=== PATIENT | female | born 1950 | race Caucasian/White ===

== ENCOUNTER 2016-07-14 19:40 | Inpatient (IN) | payer BC ==
--- NOTE | ~2016-07-14 | OP ---
Record Of Operation [facility] [address] [place]. [address] NAME: JANETT LOWE : 54 STATUS : ADM IN [facility]#: [id number] AGE: 66 ADM/REG DATE : 07/14/16 MR#: [id number] REPORT SERV DATE: 07/17/16 DICTATED BY: ANDRÉS LAZARO DATE: 07/17/16 REPORT STATUS : Draft TRANSCRIBED BY: MODL DATE: 07/17/16 DATE OF PROCEDURE: 07/16/2016 ATTENDING SURGEON: Andrés Lazaro MD SOCK IRONER: None. PRE-PROCEDURE DIAGNOSIS: Status post drip catheter for tibial artery thrombosis. 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 PROCEDURE PERFORMED: 1. Cessation of lytic catheter. 2. Right lower extremity arteriogram. 3. Penumbra arterial aspiration of the anterior tibial artery using a CAT5 device. 4. Viabahn stenting of the SFA and popliteal artery using a 5 and 6 mm Viabahn stent. ANESTHESIA: MAC and local. SPECIMENS: None. ESTIMATED BLOOD LOSS: Minimal. COMPLICATIONS: None. INDICATIONS: Janett Lowe is 66 years old. She underwent SFA angioplasty and atherectomy yesterday with tibial artery thrombus burden. She had a drip catheter placed for 9 hours and was brought back to the operating room for further investigation. OPERATIVE COURSE: The patient was brought to the operating room and placed supine position on the operating room table. The patient had MAC anesthetic without complications. Left groin and right leg were prepped and draped in sterile fashion. A time-out was performed. Identified the correct patient, procedure, and site. We began by removing the obturator to the Uni-Fuse catheter. We wired out the Uni-Fuse catheter and brought down a TrailBlazer catheter. We performed angiogram below the knee demonstrating brisk runoff both with the peroneal and posterior tibial artery, which was in line with the foot. The anterior tibial artery was struggling to fill and terminated a couple centimeters into its course. We gave IV heparin and allowed adequate time for circulation. We were able to cannulate the anterior tibial artery and passed a wire and catheter down almost to the ankle. We brought up a CAT5 Penumbra catheter and a separator and performed aspiration thrombectomy for three runs up and down the anterior tibial artery. After this, the anterior tibial artery appeared widely patent without further thrombus burden. We brought the wire and catheter out of the anterior tibial artery and performed angiogram of the SFA. This demonstrated ready looking appearance with possible thrombus formation within the angioplastied surface. We decided to realign this area with a new stent. We began at the distal femoral plateau and started with a 5 x 150 Viabahn stent. We deployed this without problems. We then Record Of [address] [address] NAME: JANETT LOWE : 54 STATUS : ADM IN PAT#: [id number] AGE: 66 ADM/REG DATE : 07/14/16 MR#: [id number] REPORT SERV DATE: 07/17/16 DICTATED BY: ANDRÉS LAZARO DATE: 07/17/16 REPORT STATUS : Draft TRANSCRIBED BY: HOWARD DATE: 07/17/16 overlapped that going cephalad with a 6 x 250 stent, this was all post-angioplastied with a 6 mm balloon. Finish result was rapid flow through the SFA popliteal into the tibial system. No further thrombus burden was detected. The sheath was wired out and brought over to the left side of the patient. Due to the fact that it was a 7-Chilean sheath. We used a ProGlide closure device for closure and got adequate hemostasis. The patient tolerated the procedure well. She was awakened and transferred to recovery in stable condition. TIMBO/HOWARD Andrés Lazaro MD / [id number] CC: MD SIS Gonzalez TERESA J.
--- NOTE | ~2016-07-14 | OP ---
Record Of Operation [facility] [address] [place]. [address] NAME: JANETT LOWE : 54 STATUS : ADM [place] PAT#: [id number] AGE: 66 ADM/REG DATE : 07/14/16 MR#: [id number] REPORT SERV DATE: 07/16/16 DICTATED BY: ANDRÉS LAZARO DATE: 07/16/16 REPORT STATUS : Draft TRANSCRIBED BY: MODL DATE: 07/16/16 DATE OF PROCEDURE: 07/16/2016 SURGEON: Andrés Lazaro MD FELLER MACHINE OPERATOR: None. PREPROCEDURE DIAGNOSIS: Right SFA occlusion. POSTPROCEDURE DIAGNOSIS: Right SFA occlusion. PROCEDURE PERFORMED: 1. Ultrasound access, left common femoral artery. 2. Aortogram. 3. Right lower extremity arteriogram. 4. Atherectomy of the right occluded SFA stent using a Mappyfriends atherectomy device. 5. Angioplasty of the SFA using a 5 mm balloon. 6. Placement of Uni*Fuse infusion catheter. ANESTHESIA: MAC and local. SPECIMENS: None. ESTIMATED BLOOD LOSS: Minimal. COMPLICATIONS: Tibial artery thromboses. INDICATIONS: Janett Lowe is 66 years old. She presented to the hospital with one weeks' worth of foot pain. She had monophasic signals on an ultrasound. She had demonstration of stent occlusion. She was offered arteriogram. Risks, benefits, and alternatives were discussed. She understood and wished to proceed. OPERATIVE COURSE: The patient was brought to the operating room and placed in supine position on the operating room table. The patient had MAC anesthetic without complications. Bilateral groins were prepped and draped in sterile fashion. A time-out was performed and identified correct patient, procedure, and site. We began by using the ultrasound to identify the left common femoral artery, it was patent with qvld-ce-vniyscnn disease. We anesthetized the skin and accessed the artery under ultrasound guidance. A wire was passed into the abdominal aorta, the needle was removed, we placed a 5-Solomon Islander sheath. Over the wire, we passed the UF catheter and performed aortography demonstrating patency of the aortoiliac segment with moderate disease in the iliac arteries bilaterally. No flow- limiting stenosis was identified. We then were able to catheterize the contralateral common iliac artery and passed a wire and catheter down to the right common femoral level. We performed arteriogram, demonstrating patent common femoral and profunda femoris arteries. The profunda femoris beat the SFA, which was occluded. The popliteal artery reconstituted at the knee into what appeared to be three-vessel runoff through anterior and posterior Record Of Operation [facility] [id number] [place]. [address] NAME: JANETT LOWE : 54 STATUS : ADM [place] PAT#: [id number] AGE: 66 ADM/REG DATE : 07/14/16 MR#: [id number] REPORT SERV DATE: 07/16/16 DICTATED BY: ANDRÉS LAZARO DATE: 07/16/16 REPORT STATUS : Draft TRANSCRIBED BY: MODKinjal DATE: 07/16/16 tibial and peroneal arteries. IV heparin was running throughout the case. We sized up to a 6-Solomon Islander sheath. We then brought a wire and catheter and were able to gain access into the occluded SFA. We traversed the SFA occlusion and emerged at the popliteal artery, where we performed the runoff picture as documented above. We then changed out to a #5 Spider filter to prevent embolization. We then brought up a Jetstream device and performed atherectomy with both wings down and wings up of the entire occluded SFA stent. We then angioplastied the SFA stent using a 5 mm balloon. Repeat angiogram demonstrated improvement proximally, but no improvement distally. We re-angioplastied the distal portion for 3 minutes at 12 atmospheres. This gave a much improved result with widely patent stent all the way down to the popliteal artery. The flow was sluggish and looked to be hanging up at the popliteal artery. We replaced the Trailblazer catheter distally and performed distal runoff view, which showed no flow in all tibial arteries. We gave tPA through the catheter as well as nitroglycerin, thinking we had spasm. This improved the proximal portion of the tibials, but the distals still appeared occluded. We felt that it was prudent to try and drip this for several hours to try and resolve the problem in the tibial arteries. We placed a Uni*Fuse catheter down into the anterior tibial artery, and the treatment portion draped over the tibioperoneal trunk and back up into the popliteal artery. We placed the obturator, connected the 7-Solomon Islander sheath to heparin drip, and connected the Uni*Fuse catheter to a tPA drip. The system was secured to the skin, and then she was transferred to the ICU in stable condition. JSH/ÁLVAROL Andrés Lazaro MD / [id number] CC: MD Gilbert Gonzalez Teresa J
--- NOTE | ~2016-07-14 | HP ---
History And Physical [facility] [address] [place]. [address] NAME: JANETT TRIVEDI : 54 STATUS : DIS IN PAT#: [id number] AGE: 66 ADM/REG DATE : 07/14/16 MR#: [id number] REPORT SERV DATE: 08/12/16 DICTATED BY: ANDRÉS LAZARO DATE: 08/11/16 REPORT STATUS : Draft TRANSCRIBED BY: HOWARD DATE: 08/11/16 DATE OF ADMISSION: 07/14/2016 REASON FOR ADMISSION: Leg pain. HISTORY: Janett Trivedi is a 66-year-old white female, seen in the emergency department for a red painful right foot. This has been going on for several days. She does not have any thigh or calf pain, but the foot is hot and warm and she came to the ER for further evaluation. They performed investigation and found occluded, what they said was, fem-pop bypass graft, but I do not believe she has that. She had monophasic flow distally in her foot, but due to the acute change in her vascular condition, was offered admission and intervention. PAST MEDICAL HISTORY: Includes hypertension, carotid artery disease, peripheral vascular disease, history of stroke in 2013, history of AAA, chronic kidney disease, peripheral neuropathy, and anemia. PAST SURGICAL HISTORY: Includes arteriogram of the left leg with SFA and popliteal intervention on October of 2013, tubal ligation, history of breast surgery, left carotid endarterectomy in October of 2013, history of stent placement in the right leg. SOCIAL HISTORY: History of tobacco abuse, used to be one pack per day. She quit back in April. She is a moderate drinker, consumes three glasses of wine per day. FAMILY HISTORY: Colon cancer in her father and lung cancer in her father. ALLERGIES: NO KNOWN ALLERGIES. MEDICATIONS: Include chlorthalidone, metoprolol, losartan, Plavix, aspirin, amlodipine, Neurontin, clonidine, carvedilol. PHYSICAL EXAMINATION: VITAL SIGNS: The patient is 123 pounds. She is 5 feet tall. Pulse is 78, blood pressure was 158/96, pulse is 78, respirations are 12 with 98% on room air. GENERAL: She is pleasant without distress. HEENT: She wears glasses. Her mucous membranes are moist. Her head is normocephalic and atraumatic. Her pupils are equal, round, and reactive to light. Her extraocular muscles are intact. NECK: Supple without JVD or lymphadenopathy. She has no carotid bruit. CHEST: Clear to auscultation bilaterally with good respiratory effort. CARDIOVASCULAR: Regular rate and rhythm without murmur, rub, or gallop. ABDOMEN: Soft, nontender, and nondistended without any masses. VASCULAR: She has palpable radial pulses bilaterally. Her femoral pulses are palpable bilaterally. The right foot is red and has some swelling. The capillary refill is delayed. There was monophasic signal distally in the right foot. History And Physical [address] [address] NAME: JANETT TRIVEDI : 54 STATUS : DIS IN [facility]#: [id number] AGE: 66 ADM/REG DATE : 07/14/16 MR#: [id number] REPORT SERV DATE: 08/12/16 DICTATED BY: ANDRÉS LAZARO DATE: 08/11/16 REPORT STATUS : Draft TRANSCRIBED BY: HOWARD DATE: 08/11/16 IMPRESSION AND PLAN: Janett Trivedi is a 66-year-old with an acute change in her vascular condition. She is offered urgent arteriogram to rectify the problem. Risks, benefits, and alternatives of the bleeding, limb loss, and were discussed. She will be admitted to the hospital afterwards for monitoring of her acute situation. LYNSEY/HOWARD Andrés Lazaro MD / [id number] CC: MD SIS Gonzalez TERESA J
--- NOTE | ~2016-07-14 | DS ---
Discharge Summary [facility] [address] [place]. [address] NAME: SARA LOWE : 54 STATUS : DIS IN PAT#: [id number] AGE: 66 ADM/REG DATE : 07/14/16 MR#: [id number] REPORT SERV DATE: 08/11/16 DICTATED BY: ANDRÉS LAZARO DATE: 08/11/16 REPORT STATUS : Draft TRANSCRIBED BY: HOWARD DATE: 08/11/16 ADMISSION DATE: 07/14/2016 DISCHARGE DATE: 07/19/2016 DISCHARGE CONDITION: Stable. DISCHARGE DISPOSITION: To home. PROCEDURES PERFORMED: On 07/16/2016, she had intervention of the right leg with an arteriogram and atherectomy of her occluded SFA stents. She also had distal embolization, requiring placement of a UniFuse catheter. She had a return visit to the operating room later in the day on 07/16 with cessation of the lytic catheter and percutaneous thrombectomy using a Penumbra device. At that time, she also had re-stenting of her SFA stents. She did well after that procedure and was maintained on aspirin and Plavix. Her lower extremity improved to the point where she could walk on it. She had physical therapy while she was here and was discharged over the weekend on 07/19/2016 in stable condition to home. She will follow up with Dr. Lazaro in two weeks. TIMBO/HOWARD Andrés Lazaro MD / [id number] CC: MD Gilbert Gonzalez Teresa J
[~2016-07-14 19:40] MED LIST: ACET500CAP PO; ADVIL PO; ASA5GR PO; ASABAYER PO; BYSTOLIC10 MG PO; CAT2; CENTRUM PO; COREG12 PO; COZ50 PO; DENIES HOME MEDS; HYGROTON 25 MG25 MG PO; LIPITOR40; LISINOPRIL40 MG PO; LOP50 PO; MAGOX4 PO; MULTIPLE VIT; NEUR300; NEUR300 PO; NORV10 PO; NORV5 PO; P10; PLAVIX PO; PROTONIX; SPIRO25 PO; VITAMIN E OTC PO
[2016-07-16 06:56] LABS: HEMATOCRIT 33.7 % (36.0-48.0); HEMOGLOBIN 11.1 g/dL (12.0-16.0)
[2016-07-16 07:11] LABS: BUN (BLOOD UREA NITROGEN) 22 MG/DL (6-23); CALCIUM, SERUM 8.5 MG/DL (8.5-10.4); CHLORIDE, SERUM 109 MMOL/L (96-112); CO2 (CARBON DIOXIDE) 22 MMOL/L (24-34); CREATININE 1.33 MG/DL (0.55-1.02); GFR AFRICAN AMERICAN 49 ML/MIN (>=60); GFR NON AFRICAN AMERICAN 42 ML/MIN (>=60); GLUCOSE, SERUM 143 MG/DL (60-99); POTASSIUM, SERUM 4.4 MMOL/L (3.5-5.3); SODIUM, SERUM 140 MMOL/L (135-148)
[2016-07-17 06:57] LABS: BASOPHILS 0.5 %; BASOPHILS ABSOLUTE 0.07 10/3/uL (0.0-0.16); EOSINOPHILS 3.5 %; EOSINOPHILS ABSOLUTE 0.47 10/3/uL (0.0-0.53); IMMATURE GRANULOCYTES 0.7 %; IMMATURE GRANULOCYTES ABSOLUTE 0.09 10/3/uL (0.0-0.11); LYMPHOCYTES 14.9 %; LYMPHOCYTES ABSOLUTE 2.02 10/3/uL (0.67-4.30); MEAN CORPUS HGB CONC 33.3 g/dL (32.0-36.0); MEAN CORPUSCULAR HEMOGLOB 27.2 pg (26.0-34.0); MEAN CORPUSCULAR VOLUME 81.7 fL (80-100); MEAN PLATELET VOLUME 9.1 fL (9.2-13.0); MONOCYTES 10.5 %; MONOCYTES ABSOLUTE 1.43 10/3/uL (0.21-1.20); NEUTROPHILS 69.9 %; RBC DISTRIBUTION WIDTH 15.9 % (12.0-16.0); WHITE BLOOD CELLS 13.6 10/3/uL (4.5-10.5)
[2016-07-17 07:01] LABS: MANUAL DIFF NO %; PLATELET COUNT 320 10/3/uL (150-400); RED CELL COUNT 3.67 10/6/uL (4.0-5.6)
[2016-07-17 07:04] LABS: CALCIUM, SERUM 8.1 MG/DL (8.5-10.4); CHLORIDE, SERUM 110 MMOL/L (96-112); CO2 (CARBON DIOXIDE) 21 MMOL/L (24-34); CREATININE 1.28 MG/DL (0.55-1.02); GFR AFRICAN AMERICAN 51 ML/MIN (>=60); GFR NON AFRICAN AMERICAN 44 ML/MIN (>=60); SODIUM, SERUM 142 MMOL/L (135-148)
[2016-07-17 07:05] LABS: BUN (BLOOD UREA NITROGEN) 14 MG/DL (6-23); GLUCOSE, SERUM 96 MG/DL (60-99)
[2016-07-19] MEDS ORDERED: PLAVIX PO (15:58)
[2016-08-14] MEDS ORDERED: PROMEGA PO (23:31)
[2016-08-18] MEDS ORDERED: COREG6 PO (11:18)
[2016-08-18] MEDS ORDERED: NORV5 (11:20)
[2016-08-18] MEDS ORDERED: KLOR-CON M2020 MEQ PO (11:23)
== END 2016-07-19 16:26 | disposition home or self-care (01) | DRG 271 ==
LOC: 2SO 19:40 → CCU 07-16 10:13 → 2SO 07-16 22:39
PROVIDERS: Anesthesiology; Student in an Organized Health Care Education/Training Program
PROC: 3E053PZ Introduction of Platelet Inhibitor into Peripheral Artery, Percutaneous Approach (ICD-10-PCS; 2016-07-16)
PROC: 04HQ33Z Insertion of Infusion Device into Left Anterior Tibial Artery, Percutaneous Approach (ICD-10-PCS; 2016-07-16)
PROC: B41D1ZZ Fluoroscopy of Aorta and Bilateral Lower Extremity Arteries using Low Osmolar Contrast (ICD-10-PCS; principal; 2016-07-16 07:45)
PROC: 04CL3ZZ Extirpation of Matter from Left Femoral Artery, Percutaneous Approach (ICD-10-PCS; 2016-07-16 07:45)
PROC: 047L3ZZ Dilation of Left Femoral Artery, Percutaneous Approach (ICD-10-PCS; 2016-07-16 07:45)
PROC: B44GZZ3 Ultrasonography of Left Lower Extremity Arteries, Intravascular (ICD-10-PCS; 2016-07-16 18:45)
PROC: B41G1ZZ Fluoroscopy of Left Lower Extremity Arteries using Low Osmolar Contrast (ICD-10-PCS; 2016-07-16 18:45)
PROC: 047K3ZZ Dilation of Right Femoral Artery, Percutaneous Approach (ICD-10-PCS; 2016-07-17)
PROC: B41F1ZZ Fluoroscopy of Right Lower Extremity Arteries using Low Osmolar Contrast (ICD-10-PCS; 2016-07-17)
DX: T82.856A Stenosis of peripheral vascular stent, initial encounter (principal); L03.115 Cellulitis of right lower limb; I12.9 Hypertensive chronic kidney disease with stage 1 through stage 4 chronic kidney disease, or unspecified chronic kidney disease; I77.1 Stricture of artery; F17.210 Nicotine dependence, cigarettes, uncomplicated; I71.4 Abdominal aortic aneurysm, without rupture; Y82.9 Unspecified medical devices associated with adverse incidents; N18.9 Chronic kidney disease, unspecified; G62.9 Polyneuropathy, unspecified; Z86.73 Personal history of transient ischemic attack (TIA), and cerebral infarction without residual deficits
CPT/HCPCS: 37186; 37211; 37214; 37225; 37226; 75625; 75710; 80048; 85014; 85018; 85025; 85730; 87641; 93005; A9270-GY; C1714; C1725; C1750; C1757; C1760; C1769; C1874; C1884; C1887; C1894; J0690; J2250; J2405; J2997; J3010; Q9966

== ENCOUNTER 2016-09-17 06:50 | Inpatient (IN) | payer BC ==
[2016-09-16 14:46] LABS: BASOPHILS 1.4 %; BASOPHILS ABSOLUTE 0.16 10/3/uL (0.0-0.16); EOSINOPHILS 12.4 %; HEMATOCRIT 26.9 % (36.0-48.0); HEMOGLOBIN 8.9 g/dL (12.0-16.0); IMMATURE GRANULOCYTES 0.2 %; IMMATURE GRANULOCYTES ABSOLUTE 0.02 10/3/uL (0.0-0.11); LYMPHOCYTES 19.4 %; LYMPHOCYTES ABSOLUTE 2.19 10/3/uL (0.67-4.30); MEAN CORPUS HGB CONC 33.1 g/dL (32.0-36.0); MEAN CORPUSCULAR HEMOGLOB 26.6 pg (26.0-34.0); MEAN CORPUSCULAR VOLUME 80.5 fL (80-100); MEAN PLATELET VOLUME 9.6 fL (9.2-13.0); MONOCYTES 7.5 %; MONOCYTES ABSOLUTE 0.85 10/3/uL (0.21-1.20); NEUTROPHILS 59.1 %; NEUTROPHILS ABSOLUTE 6.64 10/3/uL (2.02-8.40); RBC DISTRIBUTION WIDTH 17.4 % (12.0-16.0); RED CELL COUNT 3.34 10/6/uL (4.0-5.6); WHITE BLOOD CELLS 11.3 10/3/uL (4.5-10.5)
[2016-09-16 14:49] LABS: MANUAL DIFF NO %; PLATELET COUNT 406 10/3/uL (150-400)
[2016-09-16 15:04] LABS: BUN (BLOOD UREA NITROGEN) 44 MG/DL (6-23); CHLORIDE, SERUM 111 MMOL/L (96-112); GLUCOSE, SERUM 97 MG/DL (60-99); SODIUM, SERUM 142 MMOL/L (135-148)
[2016-09-16 15:06] LABS: CALCIUM, SERUM 8.9 MG/DL (8.5-10.4); CO2 (CARBON DIOXIDE) 18 MMOL/L (24-34); CREATININE 3.36 MG/DL (0.55-1.02); GFR AFRICAN AMERICAN 16 ML/MIN (>=60); GFR NON AFRICAN AMERICAN 14 ML/MIN (>=60); POTASSIUM, SERUM 5.8 MMOL/L (3.5-5.3)
--- NOTE | ~2016-09-17 | OP ---
Record Of Operation [facility] [address] [place]. [address] NAME: JANETT TRIVEDI : 54 STATUS : ADM IN [facility]#: [id number] AGE: 66 ADM/REG DATE : 09/17/16 MR#: [id number] REPORT SERV DATE: 09/17/16 DICTATED BY: ANDRÉS LAZARO DATE: 09/17/16 REPORT STATUS : Draft TRANSCRIBED BY: HOWADR DATE: 09/17/16 DATE OF PROCEDURE: 09/17/2016 PREPROCEDURE DIAGNOSIS: Left lower extremity PAD, severe. POSTPROCEDURE DIAGNOSIS: Distal SFA and popliteal occlusion. PROCEDURE PERFORMED: 1. Ultrasound access, right common femoral artery. 2. Aortogram. 3. Left lower extremity arteriogram. 4. Second order catheterization of the left popliteal artery. ANESTHESIA: MAC and local. SPECIMENS: None. ESTIMATED BLOOD LOSS: Minimal. COMPLICATIONS: None. CONTRAST LOAD: 0, CO2 was used for the entire procedure. INDICATIONS: Janett rTivedi is a 66-year-old, has severe PAD, she has had previous stenting in the left leg. Her last ultrasound demonstrated severely reduced ABIs and 0 toe pressures with flat waveforms. She was offered arteriogram. Risks, benefits, and alternatives were discussed. She understood and wished to proceed. OPERATIVE COURSE: The patient was brought to the operating room and placed in the supine position on the operating room table. The patient had MAC anesthetic without complications. Left leg and groins were prepped and draped in sterile fashion. A time-out was performed. Identified the correct patient, procedure, and site. We began by using ultrasound to identify the right common femoral artery, it was patent with moderate disease. We anesthetized the skin and accessed the artery under ultrasound guidance. A copy of this picture was placed in the chart for review. Once we had access, wire was passed into the abdominal aorta. The needle was removed, we placed a 5-Kyrgyz sheath over the wire. We passed the UF catheter placed at the L1 vertebral level and we performed aortography with CO2 injection. This demonstrated patency of the aortoiliac segment with moderate calcific vascular disease, but no obvious flow-limiting stenosis. We used a wire and catheter, accessed the contralateral common iliac artery. We then performed left lower extremity arteriogram with CO2 injection as well. The proximal stent in the SFA was open, the common femoral, and profunda femoris were patent. Distally the SFA appeared to be occluded through the knee and appeared to have runoff through the peroneal and posterior tibial artery only. The posterior tibial was the dominant runoff. The peroneal was sluggish and ended at its usual course at the ankle in its terminal branches. We gave IV heparin, we sized up to a 6- Kyrgyz sheath. We brought a wire and catheter down to the level of the occluded stent. We Record Of [address] [address] NAME: JANETT TRIVEDI : 54 STATUS : ADM IN PAT#: [id number] AGE: 66 ADM/REG DATE : 09/17/16 MR#: [id number] REPORT SERV DATE: 09/17/16 DICTATED BY: ANDRÉS LAZARO DATE: 09/17/16 REPORT STATUS : Draft TRANSCRIBED BY: HOWARD DATE: 09/17/16 were able to make progress through the occlusion with wire and catheter advancement. We made it to the distal popliteal artery and then we were not able to enter the true lumen distally. We had evidence of extravasation of CO2 on one of our final injections. At that point, we elected to terminate before we had any complications. Wires and catheters were removed. We wired out the sheath and brought over to the right side of the patient. We performed contrast arteriogram with CO2 at the common femoral level. This demonstrated a smallish appearing common femoral artery that was better suited to manual pressure then a closure device. Sheath, catheters, and wires were removed. Pressure was held on the artery for 15 minutes. A pressure dressing was applied. The patient tolerated the procedure well. She was awakened and transferred to recovery in stable condition. TIMBO/HOWARD Andrés Lazaro MD / [id number] CC: MD SIS Gonzalez TERESA J
--- NOTE | ~2016-09-17 | CN ---
Consultation Report [facility] [address] [place]. [address] NAME: SARA LOWE : 54 STATUS : ADM IN [facility]#: [id number] AGE: 66 ADM/REG DATE : 09/17/16 MR#: [id number] REPORT SERV DATE: 09/30/16 DICTATED BY: LAURA ALARCON DATE: 09/29/16 REPORT STATUS : Draft TRANSCRIBED BY: MODL DATE: 09/29/16 INFECTIOUS DISEASE CONSULTATION DATE OF CONSULTATION: 09/29/2016 REASON FOR CONSULTATION: C. diff colitis. HISTORY OF PRESENT ILLNESS: This is a 66-year-old female with a past medical history notable for severe vascular disease with known abdominal aortic aneurysm and previous lower extremity stenting, along with coronary artery disease, hypertension, and chronic kidney disease. She was admitted to the hospital on 09/17/2016 with acute kidney injury and need for left lower extremity arteriogram. She has progressed to what appears to be end-stage renal disease in need of dialysis and had a PermCath placed on 09/24/2016. The patient had pyuria on admission, but repeat urinalysis the next day was unimpressive and the initial urine culture was negative. She did receive doses of Ancef on 09/17/2016 and 09/24/2016 for procedures. She had a fever to 100.6 on 09/23/2016, 100 on 09/25/2016, and 100.7 on 09/28/2016. She also developed diarrhea and worsening leukocytosis yesterday prompting testing for C. diff, which returned positive. Her white count is up to 18.6 today, but she says she really has not had too many episodes of loose stools today and she denies any significant abdominal pain. She was started on Flagyl yesterday. She denies recent antibiotics otherwise. PAST MEDICAL HISTORY: In addition, notable for previous CVAs. ALLERGIES: NONE. PRESENT MEDICATIONS: In addition to Flagyl include Norvasc, Coreg, Catapres, Plavix, Neurontin, subcutaneous heparin, and multivitamins. SOCIAL HISTORY: Long-term tobacco user, although quit apparently a few months ago. Lives alone. Nondrinker. FAMILY HISTORY: Notable for CVA. REVIEW OF SYSTEMS: No chest pain, shortness of breath, nausea, or vomiting. PHYSICAL EXAMINATION: VITAL SIGNS: The patient weighs 58 kg. She is afebrile. Blood pressure 149/68, pulse 64, respiratory rate 14. GENERAL: She is in no acute distress. HEAD AND NECK: Shows a clear oral cavity without thrush. LUNGS: Clear to auscultation anteriorly. CARDIAC: Regular rate and rhythm without murmur, gallop, or rub. Consultation Report [facility] [address] [place]. [address] NAME: SARA LOWE : 54 STATUS : ADM IN [facility]#: [id number] AGE: 66 ADM/REG DATE : 09/17/16 MR#: [id number] REPORT SERV DATE: 09/30/16 DICTATED BY: LAURA ALARCON DATE: 09/29/16 REPORT STATUS : Draft TRANSCRIBED BY: HOWARD DATE: 09/29/16 ABDOMEN: Bowel sounds are normal. The abdomen is nondistended, soft, mild discomfort to palpation. EXTREMITIES: Without rash or edema. She has a peripheral IV without phlebitis. LABORATORY STUDIES: White blood cell count 18.6, hemoglobin 7.3, platelets 386. Creatinine 4.58, albumin 2.3. Blood cultures from 09/23/2016 are negative. IMPRESSION: Clostridium difficile colitis. On the one hand, this does not seem like a very severe case with regard to the frequency of stools. However, with her fever yesterday, her rising leukocytosis, and her age and comorbidities, I would favor vancomycin over Flagyl, and I would favor a tapering course of therapy to decrease the risk of a relapse in this patient. PLAN: We will change the vancomycin and give 125 mg q.i.d. x10 days, then t.i.d. for a week, b.i.d. for a week, and daily for one week. DENIZ/HOWARD Laura Alarcon M.D. / [id number] CC: MD Jojo Gonzalez
--- NOTE | ~2016-09-17 | DS ---
Discharge Summary [facility] [address] [place]. [address] NAME: SARA LOWE : 54 STATUS : DIS IN PAT#: [id number] AGE: 66 ADM/REG DATE : 09/17/16 MR#: [id number] REPORT SERV DATE: 10/15/16 DICTATED BY: ANDRÉS LAZARO DATE: 10/15/16 REPORT STATUS : Draft TRANSCRIBED BY: MODKinjal DATE: 10/15/16 Data Collection from hospitalization DISCHARGE DIAGNOSES: 1. Left lower extremity peripheral arterial disease, severe. 2. Acute kidney injury. 3. Late stage chronic kidney disease. 4. Clostridium difficile colitis. 5. Hypertension. 6. Coronary artery disease. 7. History of abdominal aortic aneurysm. CONSULTATIONS: 1. Juan Alarcon M.D. 2. Jamar Negrete M.D. PROCEDURES PERFORMED: 1. Ultrasound access, right common femoral artery; aortogram; left lower extremity arteriogram; second order catheterization of the left popliteal artery on 09/17/2016. 2. Lower extremity vein mapping on 09/17/2016. 3. Duplex Doppler imaging with color flow imaging, waveform analysis and spectral analysis of the renal arteries on 09/18/2016. 4. Placement of right IJ PermCath with fluoroscopic and ultrasound guidance on 09/24/2016. MEDICATIONS: Norvasc 5 mg twice daily, Coreg 6.25 mg twice daily, Plavix 75 mg daily, Neurontin 300 mg daily, Prinivil 10 mg daily, Theragran tablet without minerals one daily, Catapres 0.2 mg twice daily, Omegared as directed, and vancomycin 125 mg every six hours. CONDITION AT DISCHARGE: Upon discharge, she did appear to be doing well and had no complaints. DISPOSITION: She was discharged home to continue a regular diet with activity as tolerated. She was to follow up with me in the office on 10/21/2016. She was also to continue with outpatient hemodialysis at [place] [address] on Wednesday, Wednesday, Wednesday schedule. Home health care was in place upon discharge. HOSPITAL COURSE: This 66-year-old female had severe peripheral arterial disease. She has had previous stenting in the left leg. Her last ultrasound demonstrated severely reduced ABIs and 0 toe pressures with flat waveforms. She was offered arteriogram. The risks, benefits, and alternatives were discussed and she understood and wished to proceed. She was admitted for this and further treatment. Upon admission to the hospital, she had been taken to the operating room where she did undergo the above procedure. She had tolerated this well and was transferred to the recovery room. She had undergone the above lower extremity vein mapping on the day of admission. Following the day of admission, which was postop day #1, she had no complaints of pain. She was afebrile, however, blood pressure was noted to be elevated. Her creatinine was at 4.03. Both feet were warm and dry, and she had good capillary refill. She had also been seen by Ghislaine Parmar and Dr. Jamar Negrete as she had been found to have acute kidney injury as well as chronic kidney disease with question Discharge Summary [address] [address] NAME: SARA LOWE : 54 STATUS : DIS IN PAT#: [id number] AGE: 66 ADM/REG DATE : 09/17/16 MR#: [id number] REPORT SERV DATE: 10/15/16 DICTATED BY: ANDRÉS LAZARO DATE: 10/15/16 REPORT STATUS : Draft TRANSCRIBED BY: HOWARD DATE: 10/15/16 of progression, and there was question of she had contrast-induced nephropathy plus or minus some cholesterol emboli from her procedure or from the floor. Adjustments were made in her IV fluids and some bicarb was added. Her home potassium was stopped. She did undergo the above duplex Doppler imaging of the renal arteries. She was continued on hemodialysis during hospitalization. On 09/19/2016, she had no complaints of shortness of breath or nausea or vomiting, and did appear to be doing well. She was continued on supportive care. On 09/20/2016, she did remain in stable condition and was continued on her current medications. She did state that she was feeling much better. Her creatinine was at 4.69 and BUN 53. On 09/21/2016, she had tolerated her diet. She was afebrile and her vital signs were stable. She had no complaints of groin pain. She was continued on her current medications. On 09/22/2016, she was felt to have been stable overnight and had no acute events noted. Her hematocrit, however, was noted to be at 19. She did undergo transfusion with 1 unit of packed red blood cells. Her creatinine was at 4.97. She had remained in stable condition, and on 09/24/2016, she did undergo placement of a right IJ PermCath with fluoroscopic and ultrasound guidance. She had tolerated this well and was transferred to the recovery room. On 09/26/2016, she did appear to be doing well and was felt to be okay from a vascular standpoint. Discharge planning was begun for outpatient hemodialysis. She had no complaints of rest pain and was continued on supportive care. On 09/27/2016, her hemoglobin was at 7.7, and she had no complaints. She did remain in stable condition. However, on 09/29/2016, she was noted to have a temperature up to 100.7. Her vital signs were, otherwise, stable. She had been checked for Clostridium difficile and this was found to be positive. She was then seen by Dr. Juan Alarcon and he stated that he favored vancomycin over Flagyl and did favor a tapering course of therapy to decrease the risk of relapse in this patient. He changed her vancomycin to a 125 mg four times daily dose x10 days, then three times daily x1 week and twice daily for one week, and then daily for one week thereafter. She had also been evaluated by Physical Therapy. After the addition of vancomycin, her diarrhea was noted to have improved. On 10/01/2016, she was afebrile and her vital signs were stable. She did appear to be doing well. She had remained in stable condition throughout the next few days and was then discharged on 10/02/2016 with the above instructions. Information collected by: Dejuan LyonsI.T. I submit the above information as my discharge summary. RW/MODL Andrés Lazaro MD / [id number] CC: MD SIS Gonzalez TERESA J Hal Hill, M.D. Joseph Watlington, M.D.
--- NOTE | ~2016-09-17 | OP ---
Record Of Operation [facility] [address] [place]. [address] NAME: JANETT TRIVEDI : 54 STATUS : ADM IN [facility]#: [id number] AGE: 66 ADM/REG DATE : 09/17/16 MR#: [id number] REPORT SERV DATE: 09/24/16 DICTATED BY: ANDRÉS LAZARO DATE: 09/24/16 REPORT STATUS : Draft TRANSCRIBED BY: MODKinjal DATE: 09/24/16 DATE OF PROCEDURE: 09/24/2016 FILLER ROOM ATTENDANT: None. PREPROCEDURE DIAGNOSIS: Acute kidney injury and late stage chronic kidney disease. POSTPROCEDURE DIAGNOSIS: Acute kidney injury and late stage chronic kidney disease. PROCEDURE PERFORMED: Placement of right IJ PermCath with fluoroscopic and ultrasound guidance. ANESTHESIA: MAC and local. SPECIMENS: None. ESTIMATED BLOOD LOSS: Minimal. COMPLICATIONS: None. INDICATIONS: Janett Trivedi is 66 years old and has had progressive renal decline while in the hospital despite all measures to assist her kidneys. She now requires dialysis. She was offered PermCath placement. Risks, benefits, and alternatives were discussed. She understood and wished to proceed. OPERATIVE COURSE: The patient was brought to the operating room and placed in a supine position on the operating room table. The patient had MAC anesthetic without complications. The right neck and chest were prepped and draped in a sterile fashion. A time-out was performed. Identified the correct patient, procedure, and site. We began by using ultrasound to identify the right IJ vein. It was patent, compressible, and free of thrombus. We anesthetized the skin and accessed the vein under ultrasound guidance. Once we had access to the wire, it was passed down through the cardiac chambers into the IVC. The needle was then removed. We then anesthetized the skin from the neck site all the way down to the chest site where an 11 blade scalpel was used to make an incision there. We then tunneled a 19 cm curved catheter from the chest site to the neck site and the tunneler was removed. We then used a series of dilators to dilate up the skin and vein tract at the neck site. We then inserted the great breakaway sheath over the wire into position under fluoroscopy. The wire and dilator were then removed. We then inserted the catheter into the sheath and placed into position. The sheath was split and removed while keeping the catheter in place. The catheter was in good position with no neck kink or tortuosity. The catheter flushed and aspirated with ease. It was loaded with heparin and end caps were placed on the catheter. We affixed the catheter to the chest wall using interrupted nylon. The skin at the neck and chest site were closed with interrupted Monocryl suture. Sterile dressing was applied. The patient tolerated the procedure well. She was awakened and transferred to recovery in stable condition. Record Of Operation [address] [address] NAME: JANETT TRIVEDI : 54 STATUS : ADM IN [facility]#: [id number] AGE: 66 ADM/REG DATE : 09/17/16 MR#: [id number] REPORT SERV DATE: 09/24/16 DICTATED BY: ANDRÉS LAZARO DATE: 09/24/16 REPORT STATUS : Draft TRANSCRIBED BY: HOWARD DATE: 09/24/16 [facility]/HOWADR Andrés Lazaro MD / [id number] CC: MD ADIN Gonzalez
--- NOTE | ~2016-09-17 | CN ---
Consultation Report [facility] [address] [place]. [address] NAME: SARA LOWE : 54 STATUS : ADM IN [facility]#: [id number] AGE: 66 ADM/REG DATE : 09/17/16 MR#: [id number] REPORT SERV DATE: 09/17/16 DICTATED BY: DATE: REPORT STATUS : Draft TRANSCRIBED BY: MODL DATE: 09/17/16 CONSULTATION DATE OF CONSULTATION: REASON FOR CONSULTATION: Acute kidney injury and CKD. HISTORY OF PRESENT ILLNESS: Ms. Lowe is a 66-year-old, white female with significant vascular disease, abdominal aortic aneurysm, and infrarenal aneurysm, who we just saw in August for acute renal failure at that time, and she had what was felt to be acute renal failure, secondary to contrast induced nephropathy after being revascularized with a right lower extremity stent. She never did drop her creatinine below 2.75, and then she is back in the hospital today for a left lower extremity arteriogram, and creatinine is 3.36. She denies any shortness of breath chest pain, tightness, or pressure. No nausea, vomiting, diarrhea. Blood pressures are elevated in the 180s. Her potassium was slightly high at 5.8. She has a little bit acidotic with a bicarb of 18. She denies any dysuria or hematuria. PAST MEDICAL HISTORY: CKD stage 3, hypertension, coronary artery disease, peripheral vascular disease, CVA x2, abdominal aortic aneurysm, left carotid endarterectomy, bilateral lower extremity stenting. ALLERGIES: NONE. FAMILY MEDICAL HISTORY: CVA. SOCIAL HISTORY: She states she lives alone. She has a history of tobacco use. Quit three to four months ago. She has a history of alcohol use in the past, none at present. HOME MEDICATIONS: Amlodipine, Coreg, Plavix, Neurontin, Centrum, and Klor-Con. REVIEW OF SYSTEMS: A 12-point review of systems was obtained and negative with the exception that in the HPI. PHYSICAL EXAMINATION: VITAL SIGNS: Temperature 97.3, blood pressure 180/87, pulse 64, respiratory rate 18, O2 saturation is 93% on 2 L. GENERAL: This is a pleasant and cooperative white female. Awake, alert, and oriented x3. In no acute distress. Answers questions appropriately. HEENT: Normocephalic and atraumatic. Conjunctivae clear. Sclerae anicteric. Pupils are equal and round. Oral mucosa is moist. NECK: Supple. Carotids are brisk. Neck veins flat. No lymphadenopathy. LUNGS: Respirations are even and unlabored. Breath sounds clear to auscultation anteriorly as she cannot roll because she is recovering from her arteriogram. Consultation Report [facility] [address] [address] NAME: SARA LOWE : 54 STATUS : ADM IN PAT#: [id number] AGE: 66 ADM/REG DATE : 09/17/16 MR#: [id number] REPORT SERV DATE: 09/17/16 DICTATED BY: DATE: REPORT STATUS : Draft TRANSCRIBED BY: MODL DATE: 09/17/16 HEART: Rate is regular. No murmur, rub, or gallop. ABDOMEN: Soft and nontender. Bowel sounds active. No masses. No hepatosplenomegaly. No bruits. No CVA tenderness. BACK: Within normal limits. EXTREMITIES: Right lower extremities with 2+ edema. Left lower extremity with trace edema. SKIN: Pale, warm, dry, and intact. No unusual rash or skin lesions. NEURO: Generalized weakness. No focal deficits. Mood and affect very pleasant and appropriate. PERTINENT LABS AND X-RAYS: Sodium 142, potassium 5.8, chloride 111, CO2 of 18, BUN of 44, creatinine of 3.36, calcium 8.6. WBCs 11, H and H are 8 and 26, and platelets 406,000. IMPRESSION: 1. Acute kidney injury. 2. Chronic kidney disease with question of progression. 3. Left lower extremity arteriogram today, postop day #0. 4. Accelerated hypertension. 5. Peripheral vascular disease. 6. Abdominal aortic aneurysm. PLAN: Acute kidney injury from last month and never has recovered. The question if she had contrast induced nephropathy plus or minus some cholesterol emboli from her procedure or from the floor. Now here for another arteriogram. We will follow labs post contrast, and we will change IV fluids around, and add some bicarb. Stop home potassium. Check a renal Doppler, and work on blood pressure control, and follow along with you. Thank you for the consult. EVARISTO/HOWARD RENETTA Wolf / [id number] CC: MD SIS Gonzalez TERESA J
[~2016-09-17 06:50] MED LIST changes: +COREG6 PO; +KLOR-CON M2020 MEQ PO; +NORV5; +PROMEGA PO
[2016-09-17 08:16] LABS: HEMATOCRIT 26.2 % (36.0-48.0); HEMOGLOBIN 8.8 g/dL (12.0-16.0)
[2016-09-18 05:10] LABS: BASOPHILS 0.6 %; BASOPHILS ABSOLUTE 0.07 10/3/uL (0.0-0.16); EOSINOPHILS 10.7 %; EOSINOPHILS ABSOLUTE 1.27 10/3/uL (0.0-0.53); HEMATOCRIT 24.2 % (36.0-48.0); HEMOGLOBIN 7.8 g/dL (12.0-16.0); IMMATURE GRANULOCYTES 0.3 %; IMMATURE GRANULOCYTES ABSOLUTE 0.03 10/3/uL (0.0-0.11); LYMPHOCYTES ABSOLUTE 1.54 10/3/uL (0.67-4.30); MANUAL DIFF NO %; MEAN CORPUS HGB CONC 32.2 g/dL (32.0-36.0); MEAN CORPUSCULAR HEMOGLOB 26.4 pg (26.0-34.0); MEAN PLATELET VOLUME 9.6 fL (9.2-13.0); MONOCYTES 8.2 %; MONOCYTES ABSOLUTE 0.97 10/3/uL (0.21-1.20); NEUTROPHILS 67.2 %; NEUTROPHILS ABSOLUTE 7.96 10/3/uL (2.02-8.40); PLATELET COUNT 341 10/3/uL (150-400); RBC DISTRIBUTION WIDTH 17.5 % (12.0-16.0); RED CELL COUNT 2.95 10/6/uL (4.0-5.6); WHITE BLOOD CELLS 11.8 10/3/uL (4.5-10.5)
[2016-09-18 05:11] LABS: ALBUMIN 2.6 G/DL (3.5-5.0); BUN (BLOOD UREA NITROGEN) 48 MG/DL (6-23); CALCIUM, SERUM 8.2 MG/DL (8.5-10.4); CHLORIDE, SERUM 114 MMOL/L (96-112); CO2 (CARBON DIOXIDE) 17 MMOL/L (24-34); CREATININE 4.03 MG/DL (0.55-1.02); GFR AFRICAN AMERICAN 13 ML/MIN (>=60); GFR NON AFRICAN AMERICAN 11 ML/MIN (>=60); GLUCOSE, SERUM 99 MG/DL (60-99); PHOSPHORUS, SERUM 4.4 MG/DL (2.5-4.5); SODIUM, SERUM 141 MMOL/L (135-148)
[2016-09-19 05:31] LABS: ASCORBIC ACID (UR NOT ORDER) NEG (NEG); BILIRUBIN, URINE NEGATIVE (NEG); KETONE, URINE NEGATIVE (NEG); LEUKOCYTE ESTERASE(NOT OR LARGE (NEG); WBC (NOT ORDERED) (RFLEX) > 182 (0-5)
[2016-09-19 05:32] LABS: ALBUMIN 2.4 G/DL (3.5-5.0); BUN (BLOOD UREA NITROGEN) 50 MG/DL (6-23); CALCIUM, SERUM 8.2 MG/DL (8.5-10.4); CHLORIDE, SERUM 111 MMOL/L (96-112); CO2 (CARBON DIOXIDE) 18 MMOL/L (24-34); GFR AFRICAN AMERICAN 11 ML/MIN (>=60); GFR NON AFRICAN AMERICAN 9 ML/MIN (>=60); GLUCOSE, SERUM 107 MG/DL (60-99); PHOSPHORUS, SERUM 4.2 MG/DL (2.5-4.5); POTASSIUM, SERUM 4.7 MMOL/L (3.5-5.3); SODIUM, SERUM 138 MMOL/L (135-148)
[2016-09-19 05:33] LABS: CREATININE 4.68 MG/DL (0.55-1.02)
[2016-09-19 11:27] LABS: COMPLEMENT C4 22.9 MG/DL (16-47)
[2016-09-19 11:31] LABS: T PROTEIN (ELECT)(NOT OR 5.3 G/DL (6.0-8.5)
[2016-09-19 14:09] LABS: CREATININE, URINE 88.6 MG/DL
[2016-09-20 05:23] LABS: ALBUMIN 2.3 G/DL (3.5-5.0); BUN (BLOOD UREA NITROGEN) 53 MG/DL (6-23); CALCIUM, SERUM 8.2 MG/DL (8.5-10.4); CHLORIDE, SERUM 109 MMOL/L (96-112); CO2 (CARBON DIOXIDE) 17 MMOL/L (24-34); CREATININE 4.69 MG/DL (0.55-1.02); GFR AFRICAN AMERICAN 11 ML/MIN (>=60); GFR NON AFRICAN AMERICAN 9 ML/MIN (>=60); GLUCOSE, SERUM 107 MG/DL (60-99); PHOSPHORUS, SERUM 4.4 MG/DL (2.5-4.5); POTASSIUM, SERUM 4.6 MMOL/L (3.5-5.3); SODIUM, SERUM 138 MMOL/L (135-148)
[2016-09-20 15:42] LABS: ASCORBIC ACID (UR NOT ORDER) NEG (NEG); BILIRUBIN, URINE NEGATIVE (NEG); KETONE, URINE NEGATIVE (NEG); LEUKOCYTE ESTERASE(NOT OR TRACE (NEG); WBC (NOT ORDERED) (RFLEX) 10 (0-5)
[2016-09-21 10:17] LABS: ALBUMIN 2.4 G/DL (3.5-5.0); CALCIUM, SERUM 8.3 MG/DL (8.5-10.4); CHLORIDE, SERUM 109 MMOL/L (96-112); CO2 (CARBON DIOXIDE) 19 MMOL/L (24-34); CREATININE 4.94 MG/DL (0.55-1.02); GFR AFRICAN AMERICAN 10 ML/MIN (>=60); GFR NON AFRICAN AMERICAN 9 ML/MIN (>=60); GLUCOSE, SERUM 92 MG/DL (60-99); PHOSPHORUS, SERUM 4.6 MG/DL (2.5-4.5); POTASSIUM, SERUM 4.5 MMOL/L (3.5-5.3); SODIUM, SERUM 139 MMOL/L (135-148)
[2016-09-21 10:18] LABS: BUN (BLOOD UREA NITROGEN) 61 MG/DL (6-23)
[2016-09-21 13:24] LABS: ANA PATTERN CENTROMERE; ANA TITER >1:640 TITER
[2016-09-21 13:47] LABS: A/G 1.12 RATIO (0.9-2.10); ALB RELATIVE % 52.9 % (60.0-89.0); ALPHA 1 RELAT % (NOT ORD) 5.7 % (1.0-4.0); ALPHA 2 (ELECTRO) 0.73 GM/DL (0.5-1.10); ALPHA 2 RELAT % 13.8 % (4.5-26.0); BETA GLOBULIN (SPE) 0.75 GM/DL (0.60-1.30); BETA RELATIVE % 14.1 % (9.0-22.0); GAMMA GLOBULIN (SPE) 0.72 G/DL (0.70-1.60); GAMMA RELAT % 13.5 % (6.0-22.0)
[2016-09-22 06:30] LABS: MEAN CORPUS HGB CONC 32.3 g/dL (32.0-36.0); MEAN CORPUSCULAR HEMOGLOB 26.4 pg (26.0-34.0); MEAN CORPUSCULAR VOLUME 81.8 fL (80-100); MEAN PLATELET VOLUME 10.2 fL (9.2-13.0); RBC DISTRIBUTION WIDTH 18.1 % (12.0-16.0); RED CELL COUNT 2.42 10/6/uL (4.0-5.6); WHITE BLOOD CELLS 14.7 10/3/uL (4.5-10.5)
[2016-09-22 06:33] LABS: HEMOGLOBIN 6.4 g/dL (12.0-16.0)
[2016-09-22 06:35] LABS: HEMATOCRIT 19.8 % (36.0-48.0); MANUAL DIFF YES %; PLATELET COUNT 204 10/3/uL (150-400)
[2016-09-22 06:39] LABS: ALBUMIN 2.2 G/DL (3.5-5.0); CALCIUM, SERUM 7.7 MG/DL (8.5-10.4); CHLORIDE, SERUM 108 MMOL/L (96-112); CO2 (CARBON DIOXIDE) 20 MMOL/L (24-34); CREATININE 4.97 MG/DL (0.55-1.02); GFR AFRICAN AMERICAN 10 ML/MIN (>=60); GFR NON AFRICAN AMERICAN 9 ML/MIN (>=60); GLUCOSE, SERUM 99 MG/DL (60-99); PHOSPHORUS, SERUM 4.8 MG/DL (2.5-4.5); POTASSIUM, SERUM 4.9 MMOL/L (3.5-5.3); SODIUM, SERUM 137 MMOL/L (135-148)
[2016-09-22 06:40] LABS: BUN (BLOOD UREA NITROGEN) 67 MG/DL (6-23)
[2016-09-22 06:54] LABS: ANISOCYTOSIS 1+ (5-10/OIF) (0-5/OIF); BAND NEUTROPHILS 2 %; EOSINOPHILS 16 %; EOSINOPHILS ABSOLUTE (CALC) 2.35 10/3/uL (0.0-0.53); IMMATURE GRANS ABSOLUTE (CALC) 0.15 10/3/uL (0.0-0.11); LYMPHOCYTES 16 %; LYMPHOCYTES ABSOLUTE (CALC) 2.35 10/3/uL (0.67-4.30); METAMYELOCYTES 1 %; MONOCYTES 6 %; MONOCYTES ABSOLUTE (CALC) 0.88 10/3/uL (0.21-1.20); NEUTROPHILS ABSOLUTE (CALC) 8.97 10/3/uL (2.02-8.40); PLATELET ESTIMATE ADQ (ADEQUATE); POLYCHROMASIA 1+ (2-5/OIF) (0-1/OIF); SEGMENTED NEUTROPHIL (0) 59 %; TOTAL NUCLEATED CELLS 100
[2016-09-22 06:55] LABS: OVALOCYTES 1+ (3-10/OIF) (0-2/OIF); POIKILOCYTOSIS 1+ (5-10/OIF) (0-5/OIF)
[2016-09-22 13:33] LABS: PROCALCITONIN 0.33 ng/mL (<0.5)
[2016-09-22 16:05] LABS: FOLATE 17.2 NG/ML (>5.2)
[2016-09-23 04:19] LABS: BASOPHILS 0.3 %; BASOPHILS ABSOLUTE 0.05 10/3/uL (0.0-0.16); EOSINOPHILS 11.3 %; EOSINOPHILS ABSOLUTE 1.86 10/3/uL (0.0-0.53); HEMATOCRIT 24.9 % (36.0-48.0); HEMOGLOBIN 8.4 g/dL (12.0-16.0); IMMATURE GRANULOCYTES 0.6 %; LYMPHOCYTES 9.4 %; LYMPHOCYTES ABSOLUTE 1.54 10/3/uL (0.67-4.30); MANUAL DIFF NO %; MEAN CORPUS HGB CONC 33.7 g/dL (32.0-36.0); MEAN CORPUSCULAR HEMOGLOB 27.3 pg (26.0-34.0); MEAN CORPUSCULAR VOLUME 80.8 fL (80-100); MEAN PLATELET VOLUME 9.7 fL (9.2-13.0); MONOCYTES 9.4 %; MONOCYTES ABSOLUTE 1.55 10/3/uL (0.21-1.20); NEUTROPHILS ABSOLUTE 11.32 10/3/uL (2.02-8.40); PLATELET COUNT 302 10/3/uL (150-400); RBC DISTRIBUTION WIDTH 16.9 % (12.0-16.0); RED CELL COUNT 3.08 10/6/uL (4.0-5.6); WHITE BLOOD CELLS 16.4 10/3/uL (4.5-10.5)
[2016-09-23 09:33] LABS: BE (BASE EXCESS) -4.6 MEQ/L (0 +/- 2.5); CARBOXYHEMOGLOBIN 1.2 % (0-3); HCO3 (ACTUAL BICARBONATE) 19.1 MEQ/L (23-27); HEMOBLOGIN CONTENT 9.1 G/DL (12-16); INSTRUMENT SERIAL # 8083; METHEMOGLOBIN 0.2 % (0-3); O2 CONTENT 11.8 VOL% (18-24); PCO2 (CO2 TENSION) 30 MMHG (35-45); PO2 (O2 TENSION) 68 MMHG (79-93); SAMPLE Arterial; pH 7.42 (7.37-7.43)
[2016-09-23 09:40] LABS: ALBUMIN 2.6 G/DL (3.5-5.0); BUN (BLOOD UREA NITROGEN) 78 MG/DL (6-23); CALCIUM, SERUM 8.1 MG/DL (8.5-10.4); CHLORIDE, SERUM 105 MMOL/L (96-112); CO2 (CARBON DIOXIDE) 19 MMOL/L (24-34); CREATININE 5.01 MG/DL (0.55-1.02); GFR AFRICAN AMERICAN 10 ML/MIN (>=60); GFR NON AFRICAN AMERICAN 8 ML/MIN (>=60); GLUCOSE, SERUM 103 MG/DL (60-99); PHOSPHORUS, SERUM 4.7 MG/DL (2.5-4.5); POTASSIUM, SERUM 4.8 MMOL/L (3.5-5.3); SODIUM, SERUM 136 MMOL/L (135-148)
[2016-09-23 12:00] LABS: GLOMERULAR BASEMENT MEMBRANE <0.2 AI (<1.0)
[2016-09-23 22:53] LABS: ANCA <1:20 (()); MYELOPEROXIDASE ANTIBODY <0.2 AI (<1.0); PROTEINASE 3 ANTIBODY <0.2 AI (<1.0)
[2016-09-24 07:33] LABS: ALBUMIN 2.3 G/DL (3.5-5.0); BUN (BLOOD UREA NITROGEN) 80 MG/DL (6-23); CHLORIDE, SERUM 104 MMOL/L (96-112); CO2 (CARBON DIOXIDE) 17 MMOL/L (24-34); CREATININE 5.37 MG/DL (0.55-1.02); GFR AFRICAN AMERICAN 9 ML/MIN (>=60); GFR NON AFRICAN AMERICAN 8 ML/MIN (>=60); GLUCOSE, SERUM 93 MG/DL (60-99); POTASSIUM, SERUM 4.6 MMOL/L (3.5-5.3); SODIUM, SERUM 135 MMOL/L (135-148)
[2016-09-24 10:31] LABS: HEPATITIS B SURFACE ANTIGEN NON-REACTIVE (NON-REACT)
[2016-09-24 10:46] LABS: HEPATITIS C ANTIBODY NON-REACTIVE (NON-REACT)
[2016-09-24 10:47] LABS: HEMATOCRIT 24.2 % (36.0-48.0); HEMOGLOBIN 8.1 g/dL (12.0-16.0); MEAN CORPUS HGB CONC 33.5 g/dL (32.0-36.0); MEAN CORPUSCULAR HEMOGLOB 27.2 pg (26.0-34.0); MEAN CORPUSCULAR VOLUME 81.2 fL (80-100); MEAN PLATELET VOLUME 9.9 fL (9.2-13.0); PLATELET COUNT 357 10/3/uL (150-400); RED CELL COUNT 2.98 10/6/uL (4.0-5.6)
[2016-09-24 10:48] LABS: MANUAL DIFF YES %
[2016-09-24 10:48] LABS: HEPATITIS B CORE AB IGM NON-REACTIVE (NON-REAC)
[2016-09-24 10:59] LABS: HEP A ANTIBODY IGM NON-REACTIVE (NON-REACT)
[2016-09-24 11:00] LABS: HIV COMBO NON-REACTIVE (NON REAC)
[2016-09-24 11:11] LABS: ANISOCYTOSIS 1+ (5-10/OIF) (0-5/OIF); BAND NEUTROPHILS 8 %; BASOPHILS 1 %; BASOPHILS ABSOLUTE (CALC) 0.16 10/3/uL (0.0-0.16); EOSINOPHILS 17 %; EOSINOPHILS ABSOLUTE (CALC) 2.72 10/3/uL (0.0-0.53); LYMPHOCYTES 7 %; LYMPHOCYTES ABSOLUTE (CALC) 1.12 10/3/uL (0.67-4.30); MONOCYTES 2 %; MONOCYTES ABSOLUTE (CALC) 0.32 10/3/uL (0.21-1.20); NEUTROPHILS ABSOLUTE (CALC) 11.68 10/3/uL (2.02-8.40); PLATELET ESTIMATE ADQ (ADEQUATE); POLYCHROMASIA 1+ (2-5/OIF) (0-1/OIF); SEGMENTED NEUTROPHIL (0) 65 %; TOTAL NUCLEATED CELLS 100
[2016-09-24 11:12] LABS: TOXIC GRANULATION 1+
[2016-09-25 05:59] LABS: BASOPHILS 0.5 %; BASOPHILS ABSOLUTE 0.07 10/3/uL (0.0-0.16); EOSINOPHILS ABSOLUTE 2.01 10/3/uL (0.0-0.53); IMMATURE GRANULOCYTES 0.5 %; IMMATURE GRANULOCYTES ABSOLUTE 0.07 10/3/uL (0.0-0.11); LYMPHOCYTES 12.3 %; LYMPHOCYTES ABSOLUTE 1.65 10/3/uL (0.67-4.30); MEAN CORPUS HGB CONC 33.3 g/dL (32.0-36.0); MEAN CORPUSCULAR HEMOGLOB 27.5 pg (26.0-34.0); MEAN CORPUSCULAR VOLUME 82.5 fL (80-100); MEAN PLATELET VOLUME 10.4 fL (9.2-13.0); MONOCYTES 10.1 %; MONOCYTES ABSOLUTE 1.35 10/3/uL (0.21-1.20); NEUTROPHILS 61.6 %; NEUTROPHILS ABSOLUTE 8.28 10/3/uL (2.02-8.40); PLATELET COUNT 381 10/3/uL (150-400); RBC DISTRIBUTION WIDTH 16.9 % (12.0-16.0); RED CELL COUNT 2.91 10/6/uL (4.0-5.6); WHITE BLOOD CELLS 13.4 10/3/uL (4.5-10.5)
[2016-09-25 06:04] LABS: MANUAL DIFF NO %
[2016-09-25 06:22] LABS: ANISOCYTOSIS 1+ (5-10/OIF) (0-5/OIF); BAND NEUTROPHILS 4 %; EOSINOPHILS 7 %; EOSINOPHILS ABSOLUTE (CALC) 0.94 10/3/uL (0.0-0.53); IMMATURE GRANS ABSOLUTE (CALC) 0.54 10/3/uL (0.0-0.11); LYMPHOCYTES 16 %; LYMPHOCYTES ABSOLUTE (CALC) 2.14 10/3/uL (0.67-4.30); METAMYELOCYTES 4 %; MONOCYTES 4 %; MONOCYTES ABSOLUTE (CALC) 0.54 10/3/uL (0.21-1.20); NEUTROPHILS ABSOLUTE (CALC) 9.25 10/3/uL (2.02-8.40); PLATELET ESTIMATE ADQ (ADEQUATE); SEGMENTED NEUTROPHIL (0) 65 %; TOTAL NUCLEATED CELLS 100
[2016-09-25 06:23] LABS: POLYCHROMASIA 1+ (2-5/OIF) (0-1/OIF); SCHISTOCYTES OCC (0-2/OIF)
[2016-09-25 06:26] LABS: ALBUMIN 2.5 G/DL (3.5-5.0); CALCIUM, SERUM 8.4 MG/DL (8.5-10.4); CHLORIDE, SERUM 103 MMOL/L (96-112); GFR AFRICAN AMERICAN 8 ML/MIN (>=60); GFR NON AFRICAN AMERICAN 7 ML/MIN (>=60); PHOSPHORUS, SERUM 5.7 MG/DL (2.5-4.5); POTASSIUM, SERUM 4.7 MMOL/L (3.5-5.3); SODIUM, SERUM 137 MMOL/L (135-148)
[2016-09-25 06:27] LABS: BUN (BLOOD UREA NITROGEN) 86 MG/DL (6-23); CO2 (CARBON DIOXIDE) 21 MMOL/L (24-34); GLUCOSE, SERUM 113 MG/DL (60-99)
[2016-09-26 07:45] LABS: HEMATOCRIT 22.2 % (36.0-48.0); HEMOGLOBIN 7.2 g/dL (12.0-16.0); MANUAL DIFF YES %; MEAN CORPUS HGB CONC 32.4 g/dL (32.0-36.0); MEAN CORPUSCULAR HEMOGLOB 26.6 pg (26.0-34.0); MEAN CORPUSCULAR VOLUME 81.9 fL (80-100); MEAN PLATELET VOLUME 10.2 fL (9.2-13.0); PLATELET COUNT 377 10/3/uL (150-400); RED CELL COUNT 2.71 10/6/uL (4.0-5.6); WHITE BLOOD CELLS 14.3 10/3/uL (4.5-10.5)
[2016-09-26 08:03] LABS: ALBUMIN 2.4 G/DL (3.5-5.0); CALCIUM, SERUM 8.3 MG/DL (8.5-10.4); CHLORIDE, SERUM 104 MMOL/L (96-112); GLUCOSE, SERUM 103 MG/DL (60-99); POTASSIUM, SERUM 4.5 MMOL/L (3.5-5.3); SODIUM, SERUM 139 MMOL/L (135-148)
[2016-09-26 08:04] LABS: BUN (BLOOD UREA NITROGEN) 61 MG/DL (6-23); CO2 (CARBON DIOXIDE) 26 MMOL/L (24-34); CREATININE 4.66 MG/DL (0.55-1.02); GFR AFRICAN AMERICAN 11 ML/MIN (>=60); GFR NON AFRICAN AMERICAN 9 ML/MIN (>=60); PHOSPHORUS, SERUM 4.4 MG/DL (2.5-4.5)
[2016-09-26 08:10] LABS: ANISOCYTOSIS 1+ (5-10/OIF) (0-5/OIF); EOSINOPHILS 13 %; EOSINOPHILS ABSOLUTE (CALC) 1.86 10/3/uL (0.0-0.53); LYMPHOCYTES 12 %; LYMPHOCYTES ABSOLUTE (CALC) 1.72 10/3/uL (0.67-4.30); MONOCYTES 11 %; MONOCYTES ABSOLUTE (CALC) 1.57 10/3/uL (0.21-1.20); NEUTROPHILS ABSOLUTE (CALC) 9.15 10/3/uL (2.02-8.40); PLATELET ESTIMATE ADQ (ADEQUATE); SEGMENTED NEUTROPHIL (0) 64 %; TOTAL NUCLEATED CELLS 100
[2016-09-27 08:06] LABS: HEMOGLOBIN 7.7 g/dL (12.0-16.0); MEAN CORPUS HGB CONC 31.3 g/dL (32.0-36.0); MEAN CORPUSCULAR HEMOGLOB 26.3 pg (26.0-34.0); MEAN PLATELET VOLUME 10.2 fL (9.2-13.0); PLATELET COUNT 369 10/3/uL (150-400); RBC DISTRIBUTION WIDTH 16.9 % (12.0-16.0); RED CELL COUNT 2.93 10/6/uL (4.0-5.6); WHITE BLOOD CELLS 13.8 10/3/uL (4.5-10.5)
[2016-09-27 08:08] LABS: HEMATOCRIT 24.6 % (36.0-48.0); MANUAL DIFF YES %
[2016-09-27 08:51] LABS: BAND NEUTROPHILS 1 %; BASOPHILS 2 %; BASOPHILS ABSOLUTE (CALC) 0.28 10/3/uL (0.0-0.16); EOSINOPHILS 18 %; EOSINOPHILS ABSOLUTE (CALC) 2.48 10/3/uL (0.0-0.53); LYMPHOCYTES 14 %; LYMPHOCYTES ABSOLUTE (CALC) 1.93 10/3/uL (0.67-4.30); MONOCYTES 7 %; MONOCYTES ABSOLUTE (CALC) 0.97 10/3/uL (0.21-1.20); NEUTROPHILS ABSOLUTE (CALC) 8.14 10/3/uL (2.02-8.40); PLATELET ESTIMATE ADQ (ADEQUATE); RBC MORPHOLOGY NORM (NORMAL); SEGMENTED NEUTROPHIL (0) 58 %; TOTAL NUCLEATED CELLS 100
[2016-09-28 06:09] LABS: HEMATOCRIT 25.5 % (36.0-48.0); HEMOGLOBIN 8.2 g/dL (12.0-16.0); MEAN CORPUS HGB CONC 32.2 g/dL (32.0-36.0); MEAN CORPUSCULAR HEMOGLOB 27.2 pg (26.0-34.0); MEAN CORPUSCULAR VOLUME 84.4 fL (80-100); MEAN PLATELET VOLUME 10.1 fL (9.2-13.0); PLATELET COUNT 398 10/3/uL (150-400); RBC DISTRIBUTION WIDTH 16.7 % (12.0-16.0); RED CELL COUNT 3.02 10/6/uL (4.0-5.6); WHITE BLOOD CELLS 15.3 10/3/uL (4.5-10.5)
[2016-09-28 06:10] LABS: MANUAL DIFF YES %
[2016-09-28 06:21] LABS: ALBUMIN 2.5 G/DL (3.5-5.0); CALCIUM, SERUM 9.1 MG/DL (8.5-10.4); CHLORIDE, SERUM 102 MMOL/L (96-112); CO2 (CARBON DIOXIDE) 26 MMOL/L (24-34); GFR AFRICAN AMERICAN 13 ML/MIN (>=60); GFR NON AFRICAN AMERICAN 11 ML/MIN (>=60); GLUCOSE, SERUM 100 MG/DL (60-99); PHOSPHORUS, SERUM 3.6 MG/DL (2.5-4.5); POTASSIUM, SERUM 4.2 MMOL/L (3.5-5.3); SODIUM, SERUM 140 MMOL/L (135-148)
[2016-09-28 06:22] LABS: BUN (BLOOD UREA NITROGEN) 44 MG/DL (6-23); CREATININE 3.96 MG/DL (0.55-1.02)
[2016-09-28 06:36] LABS: BAND NEUTROPHILS 2 %; EOSINOPHILS 12 %; EOSINOPHILS ABSOLUTE (CALC) 1.84 10/3/uL (0.0-0.53); LYMPHOCYTES 7 %; LYMPHOCYTES ABSOLUTE (CALC) 1.07 10/3/uL (0.67-4.30); MONOCYTES 10 %; MONOCYTES ABSOLUTE (CALC) 1.53 10/3/uL (0.21-1.20); NEUTROPHILS ABSOLUTE (CALC) 10.86 10/3/uL (2.02-8.40); SEGMENTED NEUTROPHIL (0) 69 %; TOTAL NUCLEATED CELLS 100
[2016-09-28 06:37] LABS: PLATELET ESTIMATE ADQ (ADEQUATE); TOXIC GRANULATION 1+
[2016-09-29 08:27] LABS: HEMOGLOBIN 7.3 g/dL (12.0-16.0); MEAN CORPUS HGB CONC 32.3 g/dL (32.0-36.0); MEAN CORPUSCULAR HEMOGLOB 26.6 pg (26.0-34.0); MEAN CORPUSCULAR VOLUME 82.5 fL (80-100); MEAN PLATELET VOLUME 10.1 fL (9.2-13.0); PLATELET COUNT 386 10/3/uL (150-400); RBC DISTRIBUTION WIDTH 16.8 % (12.0-16.0); RED CELL COUNT 2.74 10/6/uL (4.0-5.6); WHITE BLOOD CELLS 18.6 10/3/uL (4.5-10.5)
[2016-09-29 08:30] LABS: HEMATOCRIT 22.6 % (36.0-48.0); MANUAL DIFF YES %
[2016-09-29 08:34] LABS: ALBUMIN 2.3 G/DL (3.5-5.0); BUN (BLOOD UREA NITROGEN) 55 MG/DL (6-23); CALCIUM, SERUM 8.4 MG/DL (8.5-10.4); CHLORIDE, SERUM 103 MMOL/L (96-112); CO2 (CARBON DIOXIDE) 26 MMOL/L (24-34); CREATININE 4.58 MG/DL (0.55-1.02); GFR AFRICAN AMERICAN 11 ML/MIN (>=60); GFR NON AFRICAN AMERICAN 9 ML/MIN (>=60); GLUCOSE, SERUM 101 MG/DL (60-99); PHOSPHORUS, SERUM 3.7 MG/DL (2.5-4.5); POTASSIUM, SERUM 4.1 MMOL/L (3.5-5.3); SODIUM, SERUM 139 MMOL/L (135-148)
[2016-09-29 08:46] LABS: BAND NEUTROPHILS 4 %; BASOPHILS 1 %; BASOPHILS ABSOLUTE (CALC) 0.19 10/3/uL (0.0-0.16); EOSINOPHILS 8 %; EOSINOPHILS ABSOLUTE (CALC) 1.49 10/3/uL (0.0-0.53); LYMPHOCYTES 7 %; MONOCYTES 2 %; MONOCYTES ABSOLUTE (CALC) 0.37 10/3/uL (0.21-1.20); NEUTROPHILS ABSOLUTE (CALC) 15.25 10/3/uL (2.02-8.40); PLATELET ESTIMATE ADQ (ADEQUATE); SEGMENTED NEUTROPHIL (0) 78 %; TOTAL NUCLEATED CELLS 100
[2016-09-29 08:47] LABS: POLYCHROMASIA 1+ (2-5/OIF) (0-1/OIF); TOXIC GRANULATION 1+
[2016-09-30 04:41] LABS: ASCORBIC ACID (UR NOT ORDER) NEG (NEG); BILIRUBIN, URINE NEGATIVE (NEG); KETONE, URINE NEGATIVE (NEG); LEUKOCYTE ESTERASE(NOT OR TRACE (NEG); WBC (NOT ORDERED) (RFLEX) 4 (0-5)
[2016-09-30 06:30] LABS: HEMATOCRIT 24.7 % (36.0-48.0); HEMOGLOBIN 7.7 g/dL (12.0-16.0); MANUAL DIFF YES %; MEAN CORPUS HGB CONC 31.2 g/dL (32.0-36.0); MEAN CORPUSCULAR HEMOGLOB 26.5 pg (26.0-34.0); MEAN CORPUSCULAR VOLUME 84.9 fL (80-100); MEAN PLATELET VOLUME 10.1 fL (9.2-13.0); PLATELET COUNT 387 10/3/uL (150-400); RBC DISTRIBUTION WIDTH 16.7 % (12.0-16.0); RED CELL COUNT 2.91 10/6/uL (4.0-5.6); WHITE BLOOD CELLS 16.4 10/3/uL (4.5-10.5)
[2016-09-30 06:41] LABS: ALBUMIN 2.3 G/DL (3.5-5.0); CALCIUM, SERUM 8.6 MG/DL (8.5-10.4); CHLORIDE, SERUM 104 MMOL/L (96-112); CO2 (CARBON DIOXIDE) 28 MMOL/L (24-34); GFR AFRICAN AMERICAN 17 ML/MIN (>=60); GFR NON AFRICAN AMERICAN 14 ML/MIN (>=60); GLUCOSE, SERUM 106 MG/DL (60-99); PHOSPHORUS, SERUM 3.2 MG/DL (2.5-4.5); POTASSIUM, SERUM 4.2 MMOL/L (3.5-5.3); SODIUM, SERUM 139 MMOL/L (135-148)
[2016-09-30 06:42] LABS: BUN (BLOOD UREA NITROGEN) 30 MG/DL (6-23); CREATININE 3.26 MG/DL (0.55-1.02)
[2016-09-30 06:54] LABS: BAND NEUTROPHILS 7 %; BASOPHILS 1 %; BASOPHILS ABSOLUTE (CALC) 0.16 10/3/uL (0.0-0.16); EOSINOPHILS 14 %; LYMPHOCYTES 10 %; LYMPHOCYTES ABSOLUTE (CALC) 1.64 10/3/uL (0.67-4.30); MONOCYTES 2 %; MONOCYTES ABSOLUTE (CALC) 0.33 10/3/uL (0.21-1.20); NEUTROPHILS ABSOLUTE (CALC) 11.97 10/3/uL (2.02-8.40); PLATELET ESTIMATE ADQ (ADEQUATE); SEGMENTED NEUTROPHIL (0) 66 %; TOTAL NUCLEATED CELLS 100
[2016-09-30 06:55] LABS: POIKILOCYTOSIS 1+ (5-10/OIF) (0-5/OIF); POLYCHROMASIA 1+ (2-5/OIF) (0-1/OIF); SCHISTOCYTES OCC (0-2/OIF); TOXIC GRANULATION 1+
[2016-09-30 06:57] LABS: OVALOCYTES 1+ (3-10/OIF) (0-2/OIF)
[2016-10-01 08:45] LABS: HEMATOCRIT 23.6 % (36.0-48.0); HEMOGLOBIN 7.4 g/dL (12.0-16.0); MANUAL DIFF YES %; MEAN CORPUS HGB CONC 31.4 g/dL (32.0-36.0); MEAN CORPUSCULAR HEMOGLOB 26.2 pg (26.0-34.0); MEAN CORPUSCULAR VOLUME 83.7 fL (80-100); MEAN PLATELET VOLUME 10.5 fL (9.2-13.0); PLATELET COUNT 415 10/3/uL (150-400); RBC DISTRIBUTION WIDTH 16.8 % (12.0-16.0); RED CELL COUNT 2.82 10/6/uL (4.0-5.6); WHITE BLOOD CELLS 15.4 10/3/uL (4.5-10.5)
[2016-10-01 08:56] LABS: ALBUMIN 2.3 G/DL (3.5-5.0); CALCIUM, SERUM 8.5 MG/DL (8.5-10.4); CHLORIDE, SERUM 104 MMOL/L (96-112); CO2 (CARBON DIOXIDE) 29 MMOL/L (24-34); GLUCOSE, SERUM 97 MG/DL (60-99); POTASSIUM, SERUM 4.5 MMOL/L (3.5-5.3); SODIUM, SERUM 141 MMOL/L (135-148)
[2016-10-01 08:57] LABS: BUN (BLOOD UREA NITROGEN) 40 MG/DL (6-23); CREATININE 4.25 MG/DL (0.55-1.02); GFR AFRICAN AMERICAN 12 ML/MIN (>=60); GFR NON AFRICAN AMERICAN 10 ML/MIN (>=60); PHOSPHORUS, SERUM 4.2 MG/DL (2.5-4.5)
[2016-10-01 09:50] LABS: BAND NEUTROPHILS 1 %; EOSINOPHILS 17 %; EOSINOPHILS ABSOLUTE (CALC) 2.62 10/3/uL (0.0-0.53); LYMPHOCYTES 7 %; LYMPHOCYTES ABSOLUTE (CALC) 1.08 10/3/uL (0.67-4.30); MONOCYTES 5 %; MONOCYTES ABSOLUTE (CALC) 0.77 10/3/uL (0.21-1.20); NEUTROPHILS ABSOLUTE (CALC) 10.93 10/3/uL (2.02-8.40); SEGMENTED NEUTROPHIL (0) 70 %; TOTAL NUCLEATED CELLS 100
[2016-10-01] MEDS ORDERED: PRIN10 PO (09:50)
[2016-10-01 09:51] LABS: PLATELET ESTIMATE SLT INC (ADEQUATE); RBC MORPHOLOGY NORM (NORMAL)
[2016-10-01] MEDS ORDERED: MVI PO (09:51)
[2016-10-01] MEDS ORDERED: VANCOCIN HCL125 MG PO (09:53)
[2016-10-01] MEDS ORDERED: CAT2 PO (09:53)
[2016-10-02 15:16] LABS: BASOPHILS 0.8 %; BASOPHILS ABSOLUTE 0.13 10/3/uL (0.0-0.16); EOSINOPHILS 24.4 %; EOSINOPHILS ABSOLUTE 3.86 10/3/uL (0.0-0.53); HEMATOCRIT 25.7 % (36.0-48.0); IMMATURE GRANULOCYTES 0.6 %; LYMPHOCYTES ABSOLUTE 2.22 10/3/uL (0.67-4.30); MEAN CORPUS HGB CONC 31.1 g/dL (32.0-36.0); MEAN CORPUSCULAR HEMOGLOB 26.2 pg (26.0-34.0); MEAN CORPUSCULAR VOLUME 84.3 fL (80-100); MEAN PLATELET VOLUME 10.6 fL (9.2-13.0); MONOCYTES 9.2 %; MONOCYTES ABSOLUTE 1.46 10/3/uL (0.21-1.20); NEUTROPHILS ABSOLUTE 8.07 10/3/uL (2.02-8.40); PLATELET COUNT 426 10/3/uL (150-400); RBC DISTRIBUTION WIDTH 16.9 % (12.0-16.0); RED CELL COUNT 3.05 10/6/uL (4.0-5.6); WHITE BLOOD CELLS 15.8 10/3/uL (4.5-10.5)
[2016-10-02 15:19] LABS: MANUAL DIFF NO %
[2016-10-02 15:22] LABS: ALBUMIN 2.3 G/DL (3.5-5.0); BUN (BLOOD UREA NITROGEN) 32 MG/DL (6-23); CALCIUM, SERUM 8.5 MG/DL (8.5-10.4); CHLORIDE, SERUM 104 MMOL/L (96-112); CO2 (CARBON DIOXIDE) 29 MMOL/L (24-34); PHOSPHORUS, SERUM 3.8 MG/DL (2.5-4.5); SODIUM, SERUM 140 MMOL/L (135-148)
[2016-10-02 15:23] LABS: CREATININE 3.44 MG/DL (0.55-1.02); GFR AFRICAN AMERICAN 15 ML/MIN (>=60); GFR NON AFRICAN AMERICAN 13 ML/MIN (>=60); GLUCOSE, SERUM 135 MG/DL (60-99)
[2016-10-02 15:36] LABS: EOSINOPHILS 18 %; EOSINOPHILS ABSOLUTE (CALC) 2.84 10/3/uL (0.0-0.53); LYMPHOCYTES 8 %; LYMPHOCYTES ABSOLUTE (CALC) 1.26 10/3/uL (0.67-4.30); MONOCYTES 6 %; MONOCYTES ABSOLUTE (CALC) 0.95 10/3/uL (0.21-1.20); NEUTROPHILS ABSOLUTE (CALC) 10.74 10/3/uL (2.02-8.40); SEGMENTED NEUTROPHIL (0) 68 %; TOTAL NUCLEATED CELLS 100
[2016-10-02 15:37] LABS: PLATELET ESTIMATE SLT INC (ADEQUATE)
[2016-10-02 15:39] LABS: ANISOCYTOSIS 1+ (5-10/OIF) (0-5/OIF); HYPOCHROMIA 1+ (3-10/OIF) (0-2/OIF); MICROCYTES 1+ (5-10/OIF) (0-5/OIF); POLYCHROMASIA 1+ (2-5/OIF) (0-1/OIF)
== END 2016-10-02 20:51 | disposition home health service (06) | DRG 299 ==
LOC: SDC 06:50 → 2SO 13:05
PROVIDERS: Internal Medicine Nephrology; Nurse Practitioner; Registered Nurse; Student in an Organized Health Care Education/Training Program
PROC: B41D1ZZ Fluoroscopy of Aorta and Bilateral Lower Extremity Arteries using Low Osmolar Contrast (ICD-10-PCS; principal; 2016-09-17 08:15)
PROC: B41G1ZZ Fluoroscopy of Left Lower Extremity Arteries using Low Osmolar Contrast (ICD-10-PCS; 2016-09-17 08:15)
PROC: 05HM33Z Insertion of Infusion Device into Right Internal Jugular Vein, Percutaneous Approach (ICD-10-PCS; 2016-09-24)
PROC: B5131ZA Fluoroscopy of Right Jugular Veins using Low Osmolar Contrast, Guidance (ICD-10-PCS; 2016-09-24)
PROC: 5A1D60Z (ICD-10-PCS; 2016-09-24)
PROC: B543ZZA Ultrasonography of Right Jugular Veins, Guidance (ICD-10-PCS; 2016-09-24)
DX: I73.9 Peripheral vascular disease, unspecified (principal); N18.6 End stage renal disease; N17.9 Acute kidney failure, unspecified; A04.7 Enterocolitis due to Clostridium difficile; I12.0 Hypertensive chronic kidney disease with stage 5 chronic kidney disease or end stage renal disease; I71.4 Abdominal aortic aneurysm, without rupture; I25.10 Atherosclerotic heart disease of native coronary artery without angina pectoris; Z99.2 Dependence on renal dialysis; Z82.3 Family history of stroke; Z86.73 Personal history of transient ischemic attack (TIA), and cerebral infarction without residual deficits; Z87.891 Personal history of nicotine dependence
CPT/HCPCS: 36247; 36415; 36558; 36600; 71010; 75625; 75710; 76937; 77001; 80048; 80069; 80074; 81001; 82272; 82570; 82607; 82746; 82805; 82962; 83516; 83516-59; 83540; 83550; 83735; 84132; 84145; 84155; 84156; 84165; 84300; 85014; 85018; 85025; 86039; 86160; 86255; 86850; 86900; 86901; 86920; 87040; 87086; 87389; 87493; 87493-59; 89190; 93005; 93975; 97110-GP; 97116-GP; 97161-GP; 97165-GO; 97530-GP; A9270-GY; C1769; C1887; C1894; G0257; G0365; J0690; J1170; J2250; J3010; J3475; P9016; P9047; Q9967

== ENCOUNTER 2016-10-23 13:27 | Inpatient (IN) | payer BC ==
--- NOTE | ~2016-10-23 | OP ---
Record Of Operation [facility] [address] [address] NAME: SARA LOWE : 54 STATUS : ADM IN [facility]#: [id number] AGE: 66 ADM/REG DATE : 10/23/16 MR#: [id number] REPORT SERV DATE: 10/24/16 DICTATED BY: MANDEEP AMBRIZ DATE: 10/24/16 REPORT STATUS : Draft TRANSCRIBED BY: MODL DATE: 10/24/16 DATE OF PROCEDURE: 10/24/2016 PROCEDURE: Intubation. INDICATION: DESCRIPTION OF PROCEDURE: Preoxygenated 100% oxygen. Monitored by blood pressure, EKG, and pulse oximetry. #8 endotracheal tube passed under direct laryngoscopic vision to 24 cm. Tube seen to enter between cords confirmed. Good breath sounds bilaterally. End-tidal CO2, however, did not change because the patient did not have a cardiac output. HUMBERTO/HOWARD Mandeep Ambriz M.D. / [id number] CC: Dieter Cummings Jr, M.D.
--- NOTE | ~2016-10-23 | HP ---
History And Physical [place] [id number] [facility] [place]. [address] NAME: SARA LOWE : 54 STATUS : DIS IN PAT#: [id number] AGE: 66 ADM/REG DATE : 10/23/16 MR#: [id number] REPORT SERV DATE: 10/26/16 DICTATED BY: DATE: REPORT STATUS : Draft TRANSCRIBED BY: MODL DATE: 10/23/16 DATE OF ADMISSION: 10/23/2016 REASON FOR ADMISSION: End-stage renal disease, syncope, with home care deficit. HISTORY OF PRESENT ILLNESS: This is a 66-year-old female patient, who was recently initiated on dialysis. She previously had dialyzed on Wednesday, , and Wednesday schedule, and has since changed to [facility] on a Wednesday, Wednesday, and Wednesday schedule. She was found down at home by her son and unresponsive. The patient is brought here to [facility] for evaluation and is noted to have a lactate of 9.2, elevated procalcitonin at 0.78, and a white count at 32.1. Fortunately, her blood pressure has been responsive to fluid resuscitation and she is holding a reasonable blood pressure currently in the ER during evaluation. She is a rather poor historian and does not interact much in the way of providing information on her recent medical history. Her son who is at bedside provides some level of interaction and states that his mother has been difficult to care for at home and there has been consideration given in the past to placing her in a [place] [facility] [place] facility or other acute care for some time for rehabilitation, however, the patient is reluctant and has declined placement at any facility. It is unclear if she has been adherent to her medications, but her p.o. Vancocin that is prescribed for her does not appear that it has been used with instruction. She is noted to have had at least one episode of diarrhea here and the patient's son on questioning is unclear if she has had frequent diarrhea at home. The patient is awake and alert in the ER during evaluation. She is minimally interactive regarding questioning, but does not appear to be overtly obtunded or have acute deficits. PAST MEDICAL HISTORY: Positive for end-stage renal disease, on Wednesday, Wednesday, and Wednesday schedule at [facility]. History is also positive for hypertension, coronary artery disease, peripheral vascular disease, previous CVA x2, abdominal aortic aneurysm, left carotid enterectomy, bilateral lower extremity stenting. REVIEW OF SYSTEMS: Difficult to complete. What information is gathered is completed with the assistance of her son, who was at bedside. FAMILY HISTORY: Noncontributory and not reviewed during this consultation. No EtOH. No illicit drugs. History of alcohol abuse in the past and current with tobacco abuse. ALLERGIES: SHE LISTS ALLERGIES NO KNOWN ALLERGIES. ACTIVE MEDICATIONS: Norvasc 5 mg p.o. daily, Coreg 6.25 mg p.o. b.i.d., clonidine 0.2 mg p.o. b.i.d., Plavix 75 mg p.o. daily, Neurontin 300 mg daily, Prinivil 10 mg daily, Theragran one tablet one p.o. daily, [place]-3 1 g p.o. daily, and vancomycin 125 mg p.o. x7 days, was supposed to have started on 10/01/2016, it does not appear that she has done that as ordered according to pharmacy records. PHYSICAL EXAMINATION: History And Physical [address] [address] NAME: SARA LOWE : 54 STATUS : DIS IN PAT#: [id number] AGE: 66 ADM/REG DATE : 10/23/16 MR#: [id number] REPORT SERV DATE: 10/26/16 DICTATED BY: DATE: REPORT STATUS : Draft TRANSCRIBED BY: MODL DATE: 10/23/16 VITAL SIGNS: Blood pressure 124/56 after fluid bolus, heart rate is 74 beats per minute and regular, respirations are 16 per minute, and temperature 97.4. GENERAL: She is a chronically ill-appearing female patient, awake and alert during evaluation. HEENT: Normocephalic and atraumatic. Normal ocular movements. No scleral icterus or conjunctival pallor is appreciated. NECK: Supple without no thyromegaly. No JVD or mass. CHEST: Shows positive S1, S2. No rubs or gallops. LUNGS: Diminished throughout. No rhonchi or wheezes appreciated on auscultation. GI: Shows positive bowel sounds in all four quadrants. No appreciable mass or tenderness. : Deferred. EXTREMITIES: Show positive pulses. No clubbing, cyanosis, or edema. She does have a right subclavian access that it is apparent on evaluation. Does not appear to have any indications for possible infection. SKIN: Warm dry and intact to visualized surfaces. No rash, lesions, or ecchymosis. NEUROLOGIC: Neurologically, she is difficult to grade. She is awake and alert. Does not appear nonfocal, but minimally interacts. LABORATORY DATA: Pertinent laboratories and imaging to this evaluation are as follows. Comprehensive metabolic panel: Procalcitonin 0.78, sodium 139, potassium 4.2, chloride 101, CO2 of 20, BUN 24, creatinine 2.98, reflected GFR 16 mL/minute, calcium 8.1, albumin 2.3, alkaline phos 69. ALT and AST at 17 and 57. CBC shows a white blood cell count of 33.1, RBC 3.67, hemoglobin 6.7, hematocrit 21.5, and platelets 274. IMPRESSION AND PLAN: End-stage renal disease, recent initiation of hemodialysis, with jhonatan syncopal episode at home with unclear catalyst. Now admitted with underlying sepsis, hypotension, leukocytosis, questionable self-care deficit and compliance. We will admit the patient to an ICU setting, place her on the CCU for care to maintain stable blood pressure. She has been responsive to fluids and we will place p.r.n. order for Levophed if clinically it is warranted. We will continue this current liter of fluids until completion. No hemodialysis today. We will plan for hemodialysis tomorrow if the patient is stable and can tolerate it. We will continue her current p.o. Vancocin, remove all antihypertensive medications and all sedatives at this point from her home medications. Vancomycin and Levaquin have been requested from the admitting ER physicians. We will continue that order and ask the pharmacy to dose them. Request consultation from Infectious Diseasekath her stools x3, transfuse 1 unit of packed red cells this evening. Should her Hemoccult be positive, consider consultation from GI for evaluation and opinion. Involve case management in this patient's care early as there appears to be a rather complicated family situation. The patient has what would seem to be a rather large home self-care deficit, but has been resistive to placement and assistance. There may be other underlying family dynamics at play that also make this placement difficult. We appreciate the assistance of the pharmacy staff for dosing the antibiotics and would appreciate the Infectious Disease for opinion and assistance with care of this patient. Further modification of treatment plan may be made based on clinical presentation, the patient's laboratory results, and further consultation with renal attending. History And Physical [address] [place] [facility] [address] NAME: SARA LOWE : 54 STATUS : DIS IN PAT#: [id number] AGE: 66 ADM/REG DATE : 10/23/16 MR#: [id number] REPORT SERV DATE: 10/26/16 DICTATED BY: DATE: REPORT STATUS : Draft TRANSCRIBED BY: MODKinjal DATE: 10/23/16 /HOWARD Chi Barnett NP / [id number] CC: Dieter Cummings Jr, M.D. UNKNOWN
[~2016-10-23 13:27] MED LIST changes: +CAT2 PO; +MVI PO; +PRIN10 PO; +VANCOCIN HCL125 MG PO
[2016-10-23 14:33] LABS: MEAN CORPUS HGB CONC 31.2 g/dL (32.0-36.0); MEAN CORPUSCULAR HEMOGLOB 25.1 pg (26.0-34.0); MEAN PLATELET VOLUME 9.7 fL (9.2-13.0); RBC DISTRIBUTION WIDTH 17.2 % (12.0-16.0); RED CELL COUNT 2.67 10/6/uL (4.0-5.6)
[2016-10-23 14:34] LABS: INTERNATIONAL NORMAL RATI 1.6 UNITS (-); PARTIAL THROMBO TIME 26.3 SEC (22.5-37.2)
[2016-10-23 14:36] LABS: PROTIME (NOT ORD) 19.1 SEC (12.0-14.5)
[2016-10-23 14:37] LABS: ER CBC TAT 0 Hrs 15 Mins; HEMATOCRIT 21.5 % (36.0-48.0); HEMOGLOBIN 6.7 g/dL (12.0-16.0); MEAN CORPUSCULAR VOLUME 80.5 fL (80-100); PLATELET COUNT 274 10/3/uL (150-400); WHITE BLOOD CELLS 32.1 10/3/uL (4.5-10.5)
[2016-10-23 14:39] LABS: MANUAL DIFF YES %
[2016-10-23 14:43] LABS: A/G RATIO 0.6 (0.7-1.9); ALBUMIN 2.3 G/DL (3.5-5.0); ALKALINE PHOSPHATASE 69 U/L (45-117); BUN (BLOOD UREA NITROGEN) 24 MG/DL (6-23); CALCIUM, SERUM 8.1 MG/DL (8.5-10.4); CHLORIDE, SERUM 101 MMOL/L (96-112); CO2 (CARBON DIOXIDE) 20 MMOL/L (24-34); CREATININE 2.98 MG/DL (0.55-1.02); GFR AFRICAN AMERICAN 18 ML/MIN (>=60); GFR NON AFRICAN AMERICAN 16 ML/MIN (>=60); GLOBULIN 3.8 G/DL (2.5-4.1); GLUCOSE, SERUM 193 MG/DL (60-99); POTASSIUM, SERUM 4.2 MMOL/L (3.5-5.3); SGOT(AST) 57 U/L (5-40); SGPT(ALT) 17 U/L (5-65); SODIUM, SERUM 139 MMOL/L (135-148); TOTAL BILIRUBIN 0.4 MG/DL (0-1.2); TOTAL PROTEIN 6.1 G/DL (6.0-8.5)
[2016-10-23 14:44] LABS: LACTATE 9.2 MMOL/L (0.3-2.4)
[2016-10-23 14:53] LABS: ANISOCYTOSIS 1+ (5-10/OIF) (0-5/OIF); BAND NEUTROPHILS 16 %; BURR CELLS 1+ (3-10/OIF) (0-2/OIF); ER DIFF TAT 0 Hrs 31 Mins; HYPOCHROMIA 1+ (3-10/OIF) (0-2/OIF); IMMATURE GRANS ABSOLUTE (CALC) 0.96 10/3/uL (0.0-0.11); LYMPHOCYTES 5 %; LYMPHOCYTES ABSOLUTE (CALC) 1.61 10/3/uL (0.67-4.30); METAMYELOCYTES 3 %; MONOCYTES 6 %; MONOCYTES ABSOLUTE (CALC) 1.93 10/3/uL (0.21-1.20); NEUTROPHILS ABSOLUTE (CALC) 27.61 10/3/uL (2.02-8.40); PLATELET ESTIMATE ADQ (ADEQUATE); POLYCHROMASIA 1+ (2-5/OIF) (0-1/OIF); SEGMENTED NEUTROPHIL (0) 70 %; TOTAL NUCLEATED CELLS 100
[2016-10-23 15:07] LABS: PROCALCITONIN 0.78 ng/mL (<0.5)
[2016-10-23 19:11] LABS: TROPONIN I 0.05 NG/ML (<0.05)
[2016-10-24 04:26] LABS: HEMATOCRIT 21.9 % (36.0-48.0); HEMOGLOBIN 7.2 g/dL (12.0-16.0); MEAN CORPUSCULAR HEMOGLOB 26.2 pg (26.0-34.0); MEAN CORPUSCULAR VOLUME 79.6 fL (80-100); MEAN PLATELET VOLUME 10.6 fL (9.2-13.0); PLATELET COUNT 256 10/3/uL (150-400); RBC DISTRIBUTION WIDTH 16.4 % (12.0-16.0); RED CELL COUNT 2.75 10/6/uL (4.0-5.6)
[2016-10-24 04:30] LABS: MANUAL DIFF YES %; MEAN CORPUS HGB CONC 32.9 g/dL (32.0-36.0)
[2016-10-24 04:48] LABS: A/G RATIO 0.6 (0.7-1.9); ALBUMIN 2.4 G/DL (3.5-5.0); ALKALINE PHOSPHATASE 64 U/L (45-117); CALCIUM, SERUM 7.6 MG/DL (8.5-10.4); CHLORIDE, SERUM 101 MMOL/L (96-112); CREATININE 3.04 MG/DL (0.55-1.02); GFR AFRICAN AMERICAN 18 ML/MIN (>=60); GFR NON AFRICAN AMERICAN 16 ML/MIN (>=60); GLOBULIN 3.7 G/DL (2.5-4.1); PHOSPHORUS, SERUM 3.1 MG/DL (2.5-4.5); SGOT(AST) 155 U/L (5-40); SGPT(ALT) 61 U/L (5-65); SODIUM, SERUM 137 MMOL/L (135-148); TOTAL BILIRUBIN 0.5 MG/DL (0-1.2); TOTAL PROTEIN 6.1 G/DL (6.0-8.5)
[2016-10-24 04:49] LABS: BUN (BLOOD UREA NITROGEN) 30 MG/DL (6-23); CO2 (CARBON DIOXIDE) 27 MMOL/L (24-34); GLUCOSE, SERUM 124 MG/DL (60-99); POTASSIUM, SERUM 3.2 MMOL/L (3.5-5.3); TROPONIN I 0.31 NG/ML (<0.05)
[2016-10-24 05:34] LABS: BAND NEUTROPHILS 8 %; LYMPHOCYTES 5 %; SEGMENTED NEUTROPHIL (0) 87 %; TOTAL NUCLEATED CELLS 100
[2016-10-24 05:35] LABS: PLATELET ESTIMATE ADQ (ADEQUATE)
[2016-10-24 05:37] LABS: ANISOCYTOSIS 1+ (5-10/OIF) (0-5/OIF)
[2016-10-24 15:22] LABS: BE (BASE EXCESS) -5.7 MEQ/L (0 +/- 2.5); CARBOXYHEMOGLOBIN 0.3 % (0-3); HCO3 (ACTUAL BICARBONATE) 16.1 MEQ/L (23-27); HEMOBLOGIN CONTENT 8.7 G/DL (12-16); INSTRUMENT SERIAL # 35151; METHEMOGLOBIN 0.8 % (0-3); O2 CONTENT 11.8 VOL% (18-24); PCO2 (CO2 TENSION) 21 MMHG (35-45); PO2 (O2 TENSION) 85 MMHG (79-93); SAMPLE Arterial; pH 7.51 (7.37-7.43)
[2016-10-24 16:18] LABS: MEAN CORPUS HGB CONC 32.6 g/dL (32.0-36.0); MEAN PLATELET VOLUME 10.4 fL (9.2-13.0); NUCLEATED RED BLOOD CELLS 0.2 /100WBC (0-0); RBC DISTRIBUTION WIDTH 15.7 % (12.0-16.0); RED CELL COUNT 2.26 10/6/uL (4.0-5.6); WHITE BLOOD CELLS 21.9 10/3/uL (4.5-10.5)
[2016-10-24 16:19] LABS: HEMATOCRIT 18.7 % (36.0-48.0); HEMOGLOBIN 6.1 g/dL (12.0-16.0); MANUAL DIFF YES %; MEAN CORPUSCULAR VOLUME 82.7 fL (80-100); PLATELET COUNT 155 10/3/uL (150-400)
[2016-10-24 16:20] LABS: INTERNATIONAL NORMAL RATI 1.7 UNITS (-); PARTIAL THROMBO TIME 40.2 SEC (22.5-37.2); PROTIME (NOT ORD) 19.8 SEC (12.0-14.5)
[2016-10-24 16:40] LABS: BAND NEUTROPHILS 14 %; LYMPHOCYTES 7 %; LYMPHOCYTES ABSOLUTE (CALC) 1.53 10/3/uL (0.67-4.30); MONOCYTES 2 %; MONOCYTES ABSOLUTE (CALC) 0.44 10/3/uL (0.21-1.20); NEUTROPHILS ABSOLUTE (CALC) 19.93 10/3/uL (2.02-8.40); SEGMENTED NEUTROPHIL (0) 77 %; TOTAL NUCLEATED CELLS 100
[2016-10-24 16:43] LABS: ANISOCYTOSIS 1+ (5-10/OIF) (0-5/OIF)
[2016-10-24 16:44] LABS: PLATELET ESTIMATE ADQ (ADEQUATE); POIKILOCYTOSIS 1+ (5-10/OIF) (0-5/OIF)
[2016-10-24 16:52] LABS: CALCIUM, SERUM 7.5 MG/DL (8.5-10.4); CHLORIDE, SERUM 104 MMOL/L (96-112); SODIUM, SERUM 140 MMOL/L (135-148)
[2016-10-24 16:55] LABS: BUN (BLOOD UREA NITROGEN) 11 MG/DL (6-23); CO2 (CARBON DIOXIDE) 18 MMOL/L (24-34); CREATININE 1.99 MG/DL (0.55-1.02); GFR AFRICAN AMERICAN 30 ML/MIN (>=60); GFR NON AFRICAN AMERICAN 26 ML/MIN (>=60); GLUCOSE, SERUM 228 MG/DL (60-99); POTASSIUM, SERUM 4.2 MMOL/L (3.5-5.3); TROPONIN I 0.55 NG/ML (<0.05)
== END 2016-10-24 20:04 | disposition expired | DRG 871 ==
LOC: ER 13:27 → CCU 15:41
PROVIDERS: Emergency Medicine; Internal Medicine Nephrology
PROC: 5A1945Z Respiratory Ventilation, 24-96 Consecutive Hours (ICD-10-PCS; principal; 2016-10-23)
PROC: 0BH17EZ Insertion of Endotracheal Airway into Trachea, Via Natural or Artificial Opening (ICD-10-PCS; 2016-10-23)
PROC: 5A1D60Z (ICD-10-PCS; 2016-10-23)
PROC: 30233N1 Transfusion of Nonautologous Red Blood Cells into Peripheral Vein, Percutaneous Approach (ICD-10-PCS; 2016-10-24)
DX: A41.9 Sepsis, unspecified organism (principal); J96.01 Acute respiratory failure with hypoxia; I63.9 Cerebral infarction, unspecified; N18.6 End stage renal disease; I12.0 Hypertensive chronic kidney disease with stage 5 chronic kidney disease or end stage renal disease; I95.9 Hypotension, unspecified; I46.9 Cardiac arrest, cause unspecified; R62.7 Adult failure to thrive; I25.10 Atherosclerotic heart disease of native coronary artery without angina pectoris; Z66 Do not resuscitate; I73.9 Peripheral vascular disease, unspecified; I71.4 Abdominal aortic aneurysm, without rupture; Z99.2 Dependence on renal dialysis; Z86.73 Personal history of transient ischemic attack (TIA), and cerebral infarction without residual deficits
CPT/HCPCS: 36415; 36600; 70450; 71010; 80048; 80053; 80069; 82140; 82607; 82746; 82805; 82962; 83605; 83735; 84145; 84484; 85025; 85610; 85730; 86850; 86870; 86900; 86901; 86920; 86922; 87040; 87493; 87493-59; 92950; 93005; 93306; 99285; A9270-GY; G0257; J1956; J3370; P9016